=== PATIENT | male | born 1945 | race Caucasian/White ===

== ENCOUNTER 2020-02-28 19:20 | Inpatient (IN) | payer MEDICARE, OTHER ==
[~2020-02-28] VITALS: Ht 172.7 cm; Wt 67.6 kg
[2020-02-28 19:33] VITALS: BP 136/68
[2020-02-28] MEDS ORDERED: METHYL SALICYLATE/MENTHOL TOPICAL OINTMENT 57GM TUBE. TP PRN (19:45)
[2020-02-28] MEDS ORDERED: MAGNESIUM HYDROXIDE 2,400 MG/30 ML ORAL.SUSP. PO PRN (19:45)
[2020-02-28] MEDS ORDERED: MAG HYDROX/AL HYDROX/SIMETH 30 ML ORAL.SUSP PO PRN (19:45)
[2020-02-28] MEDS ORDERED: MV-M1TAB7 PO (19:56)
[2020-02-28] MEDS ORDERED: ATOR20TA58 PO (19:56)
[2020-02-28] MEDS ORDERED: Folic Acid PO (19:56)
[2020-02-28] MEDS ORDERED: ESCITALOPRAM OX10 MG PO (19:56)
[2020-02-28] MEDS ORDERED: MEDR150D9 IM (19:56)
[2020-02-28] MEDS ORDERED: HYDR-2155 PO ×2 (19:56)
[2020-02-28] MEDS ORDERED: DIVA500T4 PO (19:56)
[2020-02-28] MEDS ORDERED: FENO145T3 PO (19:56)
[2020-02-28] MEDS ORDERED: MEMA5TAB PO (19:56)
[2020-02-28] MEDS ORDERED: ACET500T68 PO (19:56)
[2020-02-28] MEDS ORDERED: MULT-245 PO (19:56)
[2020-02-28] MEDS ORDERED: HALO5AMP2 IM (19:56)
[2020-02-28] MEDS ORDERED: ASPI-630 PO (19:56)
[2020-02-28] MEDS ORDERED: TEMA7.5C PO (19:57)
[2020-02-28] MEDS ORDERED: MEDR10TA PO (19:57)
[2020-02-28] MEDS ORDERED: RIVA1PAT23 TD (19:57)
[2020-02-28] MEDS ORDERED: RIVA10TA PO (19:57)
[2020-02-28] MEDS ORDERED: POLY2500 PO (19:57)
[2020-02-28] MEDS ORDERED: QUET25TA5 PO ×2 (19:57)
[2020-02-28] MEDS ORDERED: PANT40TA6 PO (19:57)
[2020-02-28] MEDS ORDERED: SENN-37 PO (19:57)
[2020-02-28] MEDS ORDERED: DIVALPROEX ER 500 MG TAB.ER.24H PO SCH (21:00)
[2020-02-28] MEDS: ACETAMINOPHEN 500 MG TABLET PO SCH (21:00)
[2020-02-28] MEDS: QUEtiapine 25 MG TABLET. PO SCH (21:00)
[2020-02-28] MEDS: TEMAZEPAM 7.5 MG CAPSULE PO SCH (21:00)
[2020-02-28] MEDS: ATORVASTATIN CALCIUM 20 MG TABLET PO SCH (21:00)
[2020-02-28] MEDS: MEMANTINE 5 MG TABLET. PO SCH (21:00)
[2020-02-28] MEDS: SENNOSIDES/DOCUSATE 8.6/50MG TABLET. PO SCH (21:00)
--- NOTE | 2020-02-28 21:38 | NUR ---
Admission Note with Justification for Admission to [facility] Patient admitted to [facility] for protective oversight for emergency stabilization of acute psychiatric crisis. Pt admitted from: [facility] Mode of arrival: EMS Accompanied By: EMS Precipitating behaviors that initiated intake and admission: resistive to cares, combative with staff, increased aggression, hitting, spitting, throwing food, calling staff names, restless, tried to push computer over. Description of failure of out patient attempts at stabilization in previous setting list behavior and medication trials: [facility] 01/2020; medication changes and re-direction unsuccessful. Behaviors and assessment findings upon admission: Pt agitated, resistive with cares and assessment, verbally aggressive towards staff, using vulgar language. Attempted to administer HS medications, however pt spit pills at staff. Pt has been restless and uncooperative since arrival. Pt c/o L hip pain but refused his medication. Plan: Admit for protective oversight for adjustment and stabilization of medications, behaviors and mood. Intense treatment regimen including groups, medication adjustments, therapy, consistent regimen for ADL's, self care, and sleep hygiene. Daily monitoring by Inpatient staff, Psychiatry, and Medical Physician.
--- NOTE | 2020-02-28 22:02 | PDOC ---
Exam Note: Nikita Note: Please also refer to the separate dictated note~for this date of service dictated separately.~Patient seen individually. Discussed the patient with Nursing staff reviewed the chart.~Reviewed interim history and current functioning. Reviewed vital signs,~Labs/ Radiology~and current medications noted below. Continue current treatment with the changes noted in the dictated addendum note Assessment: Vital Signs/I&O: Vital Signs Date Time Temp Pulse Resp B/P (MAP) Pulse Ox O2 Delivery O2 Flow Rate FiO2 02/28/20 19:33 98.9 91 18 136/68 (90) 97 Current Medications: I have reviewed the current psychotropics carefully including drug interactions. Risk benefit ratio favors no change other than as noted in my dictated progress note. RHONDA PALUMBO MD Feb 28, 2020 22:02
[2020-02-29 06:29] LABS: CLARITY,URINE HAZY; COLOR,URINE YELLOW
[2020-02-29 06:31] LABS: BACTERIA,URINE 0 /HPF (0-FEW); BILIRUBIN,URINE NEG (NEG); GLUCOSE,URINE NEG (NEG); NITRITE,URINE NEG (NEG); RBC,URINE OCC /HPF (0-2); SQUAMOUS EPITHELIAL CELL,UR FEW /LPF; UROBILINOGEN,URINE 0.2 mg/dL (0.2 mg/dL); WBC,URINE OCC /HPF (0-4)
[2020-02-29 06:37] VITALS: BP 148/74
[2020-02-29 07:59] LABS: BASO % 0 % (0-3); EOS # 0.1 x10^3/uL (0.0-0.7); EOS % 2 % (0-3); HEMATOCRIT 29.2 % (39.0-53.0); HEMOGLOBIN 9.5 g/dL (13.0-17.5); LYMPH # 1.7 x10^3/uL (1.0-4.8); LYMPH % 30 % (24-48); MEAN CORPUSCULAR HEMOGLOBIN 30 pg (25-35); MEAN CORPUSCULAR HGB CONC 33 g/dL (31-37); MEAN CORPUSCULAR VOLUME 91 fL (79-100); MONO # 0.6 x10^3/uL (0.0-1.1); MONO % 11 % (0-9); NEUT # 3.1 x10^3uL (1.8-7.7); NEUT % 57 % (31-73); PLATELET COUNT 240 x10^3/uL (140-400); RED BLOOD COUNT 3.21 x10^6/uL (4.30-5.70); RED CELL DISTRIBUTION WIDTH 14.8 % (11.5-14.5); WHITE BLOOD COUNT 5.5 x10^3/uL (4.0-11.0)
[2020-02-29 08:17] LABS: ALBUMIN 2.7 g/dL (3.4-5.0); ALBUMIN/GLOBULIN RATIO 0.8 (1.0-1.7); ALK PHOS 70 U/L (46-116); ALT (SGPT) 18 U/L (16-63); ANION GAP 9 (6-14); AST (SGOT) 21 U/L (15-37); BLOOD UREA NITROGEN 15 mg/dL (8-26); BUN/CREATININE RATIO 9 (6-20); CALCIUM 8.4 mg/dL (8.5-10.1); CARBON DIOXIDE 24 mmol/L (21-32); CHLORIDE 109 mmol/L (98-107); CREATININE 1.6 mg/dL (0.7-1.3); GFR 42.1; GLUCOSE 90 mg/dL (70-99); SODIUM 142 mmol/L (136-145); TOTAL BILIRUBIN 0.4 mg/dL (0.2-1.0); TOTAL PROTEIN 6.1 g/dL (6.4-8.2)
[2020-02-29 08:40] LABS: VAL ACID 28 mcg/mL (50-100)
[2020-02-29] MEDS: medroxyPROGESTERone 5 MG TABLET PO SCH (08:41)
[2020-02-29] MEDS: CHOLECALCIFEROL (VITAMIN D3) 1,000 UNIT TABLET PO SCH (08:41)
[2020-02-29] MEDS: QUEtiapine 25 MG TABLET. PO SCH ×4 (08:41→19:55)
[2020-02-29] MEDS: FOLIC ACID 1 MG TABLET PO SCH (08:41)
[2020-02-29] MEDS: MEMANTINE 5 MG TABLET. PO SCH ×2 (08:41→19:56)
[2020-02-29] MEDS: ACETAMINOPHEN 500 MG TABLET PO SCH ×3 (08:41→19:55)
[2020-02-29] MEDS: SENNOSIDES/DOCUSATE 8.6/50MG TABLET. PO SCH ×2 (08:41→19:55)
[2020-02-29] MEDS: RIVASTIGMINE 9.5MG PATCH. TD SCH (08:42)
[2020-02-29] MEDS: POLYETHYLENE GLYCOL 3350 17 GM PACKET. PO SCH (08:42)
[2020-02-29] MEDS: HYDROcodone/APAP 5/325MG 1 TAB TABLET PO SCH (08:42)
[2020-02-29] MEDS: RIVAROXABAN 10 MG TABLET. PO SCH (08:42)
[2020-02-29] MEDS: FENOFIBRATE NANOCRYSTALLIZED 145 MG TABLET PO SCH (08:42)
[2020-02-29] MEDS: MULTIVITAMIN with MINERAL TABLET. PO SCH (08:42)
[2020-02-29] MEDS: PANTOPRAZOLE 40 MG TABLET. PO SCH (08:42)
[2020-02-29] MEDS: ASPIRIN CHEWABLE 81 MG TABLET. PO SCH (08:42)
[2020-02-29] MEDS: CITALOPRAM 20 MG TABLET. PO SCH (08:42)
[2020-02-29] MEDS: VALPROATE ACID 250 MG/5 ML ORAL SOLUTION PO SCH ×3 (08:43→20:07)
[2020-02-29] MEDS: NYSTATIN TOPICAL POWDER 15GM BOTTLE. TP SCH ×2 (08:43→19:55)
--- NOTE | 2020-02-29 14:06 | NUR ---
Pt is irritable, confused, disorganized,and yelling out in the morning but calm and napping in the afternoon. He was compliant with his medication and assessment.
[2020-02-29 16:19] VITALS: BP 138/64
[2020-02-29 18:07] LABS: THYROXINE 6.4 ug/dL (4.5-12.0)
[2020-02-29] MEDS: TEMAZEPAM 7.5 MG CAPSULE PO SCH (19:55)
[2020-02-29] MEDS: ATORVASTATIN CALCIUM 20 MG TABLET PO SCH (19:55)
[2020-02-29 20:06] LABS: THYROID STIM HORMONE (TSH) 2.344 uIU/mL (0.358-3.740)
--- NOTE | 2020-02-29 21:33 | CONS ---
DATE OF CONSULTATION: 02/29/2020 REASON FOR CONSULTATION: Medical management. HISTORY OF PRESENT ILLNESS: The patient is a 75-year-old male patient, a resident at [facility] in [place], who was admitted on account of being resistive to cares, combative with staff, increased aggressiveness, hitting, spitting, throwing food, calling staff names, restless, tried to push the computer over, all this in a background of major neurocognitive disorder, vascular Alzheimer with delusion, depression, behavioral disturbances; anxiety disorder, unspecified; impulse control disorder. PAST MEDICAL HISTORY: Significant for hyperlipidemia, chronic kidney disease, gastroesophageal reflux disease, hypertension, has a history of alcohol abuse and vitamin D deficiency, together with muscle wasting and difficulty walking. PAST PSYCHIATRIC HISTORY: Significant for schizoaffective disorder with mild cognitive impairment. PAST SURGICAL HISTORY: Significant for left hip fracture, status post left total hip arthroplasty. ALLERGIES: He has no known drug allergies. MEDICATIONS: He is currently on following medications: He is on valproic acid 250 mg twice a day, folic acid 1 mg once a day, nystatin powder twice a day, medroxyprogesterone acetate 150 mg intramuscular every 2 weeks, polyethylene glycol 17 grams daily, vitamin D 1000 International Units once a day, multivitamin with calcium 1 tablet once a day, rivaroxaban 10 mg once a day, Protonix 40 mg once a day, hydrocodone/APAP 5/325 1 tablet daily, fenofibrate 145 mg once a day, aspirin 81 mg once a day, medroxyprogesterone 10 mg p.o. daily, citalopram hydrobromide 20 mg daily, rivastigmine for Exelon 1 patch daily, quetiapine fumarate 25 mg 3 times a day, olanzapine 2.5 mg every 2 hours, senna-S 2 tablets twice a day, atorvastatin 20 mg at bedtime, acetaminophen 1000 mg 3 times a day, temazepam 7.5 mg at bedtime for insomnia, Seroquel 25 mg at bedtime, Namenda 5 mg twice a day, milk of magnesia 30 mL p.o. daily p.r.n. for constipation, and Mylanta 15 mL after meals and as needed. REVIEW OF SYSTEMS: Unobtainable. PHYSICAL EXAMINATION: GENERAL: On examining him, he was resting slightly propped up in bed, in no apparent respiratory distress. He was pale, not jaundiced, cyanosed or thyromegaly. No jugular venous distention. No limb edema. VITAL SIGNS: His heart rate was 78, blood pressure was 138/64, temperature was 98.2, respiratory rate was 18, and oxygen saturation was 100% on room air. HEAD, EYES, EARS, NOSE AND THROAT: Showed normocephalic, atraumatic. NECK: Supple. HEART: Showed normal first and second heart sounds. No gallop or murmur. CHEST: Clear to auscultation. No crepitation or rhonchi. ABDOMEN: Distended, soft, nontender. NEUROLOGIC: He is demented, but without any obvious lateralizing sign. All his cranial nerves are intact. EXTREMITIES: He moves extremities without difficulty. He does ambulate with a walker with standby assist. LABORATORY DATA: Showed a white cell count 5500, hemoglobin 9.5, hematocrit 29, MCV 91, and platelet count 240,000. His chemistry showed a serum sodium 142, potassium 4, chloride 109, bicarbonate 24, anion gap of 9, BUN 15, creatinine 1.6, estimated GFR was 42 mL per minute. His glucose was 90, calcium was 8.4, magnesium 2. Total bilirubin, AST, ALT, alkaline phosphatase were normal. Total protein 6.1, albumin was 2.7. His urinalysis was essentially unremarkable and his toxic screen showed that his valproic acid was only 28 mcg/mL, which is below the lower limit of therapeutic range. IMPRESSION: In summary, this is a 75-year-old male patient, a resident at [facility], who was admitted on account of being resistive to cares, combative with staff, increased aggression, hitting, spitting, throwing food, calling staff names, restless, try to push the computer over, all this in a background of major neurocognitive disorder, vascular, Alzheimer with delusion, depression with behavioral disturbances; anxiety disorder, unspecified and impulse control disorder. Medically, the patient is known to have hypertension, hyperlipidemia, gastroesophageal reflux disease as well as chronic kidney disease and normochromic normocytic anemia. So, from medical point of view, the patient seems to be stable. I will obviously follow all the lab works that are still pending at the time of this dictation and make any necessary adjustment. Meanwhile, we will continue with all his current medications. Thank you, Dr. Clemente for allowing me to participate in the care of this patient. CATALINO OWEN MD DR: REILLY/mildred JOB#: [id number] / [id number]
--- NOTE | 2020-02-29 21:52 | PDOC ---
Exam Note: Nikita Note: Please also refer to the separate dictated note~for this date of service dictated separately.~Patient seen individually. Discussed the patient with Nursing staff reviewed the chart.~Reviewed interim history and current functioning. Reviewed vital signs,~Labs/ Radiology~and current medications noted below. Continue current treatment with the changes noted in the dictated addendum note Assessment: Vital Signs/I&O: Vital Signs Date Time Temp Pulse Resp B/P (MAP) Pulse Ox O2 Delivery O2 Flow Rate FiO2 02/29/20 21:43 97.2 100 02/29/20 16:19 78 18 138/64 (88) 02/29/20 08:42 Room Air Labs: Laboratory Tests Test 02/29/20 05:52 02/29/20 07:33 Urine Collection Type U cath Urine Color Yellow Urine Clarity Hazy Urine pH 5.5 Urine Specific Killen <=1.005 Urine Protein Neg (NEG-TRACE) Urine Glucose (UA) Neg mg/dL (NEG) Urine Ketones (Stick) Neg mg/dL (NEG) Urine Blood Neg (NEG) Urine Nitrite Neg (NEG) Urine Bilirubin Neg (NEG) Urine Urobilinogen Dipstick 0.2 mg/dL (0.2 mg/dL) Urine Leukocyte Esterase Neg (NEG) Urine RBC Occ /HPF (0-2) Urine WBC Occ /HPF (0-4) Urine Squamous Epithelial Cells Few /LPF Urine Renal Epithelial Cells Few /LPF Urine Bacteria 0 /HPF (0-FEW) White Blood Count 5.5 x10^3/uL (4.0-11.0) Red Blood Count 3.21 x10^6/uL (4.30-5.70) L Hemoglobin 9.5 g/dL (13.0-17.5) L Hematocrit 29.2 % (39.0-53.0) L Mean Corpuscular Volume 91 fL (79-100) Mean Corpuscular Hemoglobin 30 pg (25-35) Mean Corpuscular Hemoglobin Concent 33 g/dL (31-37) Red Cell Distribution Width 14.8 % (11.5-14.5) H Platelet Count 240 x10^3/uL (140-400) Neutrophils (%) (Auto) 57 % (31-73) Lymphocytes (%) (Auto) 30 % (24-48) Monocytes (%) (Auto) 11 % (0-9) H Eosinophils (%) (Auto) 2 % (0-3) Basophils (%) (Auto) 0 % (0-3) Neutrophils # (Auto) 3.1 x10^3uL (1.8-7.7) Lymphocytes # (Auto) 1.7 x10^3/uL (1.0-4.8) Monocytes # (Auto) 0.6 x10^3/uL (0.0-1.1) Eosinophils # (Auto) 0.1 x10^3/uL (0.0-0.7) Basophils # (Auto) 0.0 x10^3/uL (0.0-0.2) Sodium Level 142 mmol/L (136-145) Potassium Level 4.0 mmol/L (3.5-5.1) Chloride Level 109 mmol/L (98-107) H Carbon Dioxide Level 24 mmol/L (21-32) Anion Gap 9 (6-14) Blood Urea Nitrogen 15 mg/dL (8-26) Creatinine 1.6 mg/dL (0.7-1.3) H Estimated GFR (Cockcroft-Gault) 42.1 BUN/Creatinine Ratio 9 (6-20) Glucose Level 90 mg/dL (70-99) Calcium Level 8.4 mg/dL (8.5-10.1) L Magnesium Level 2.0 mg/dL (1.8-2.4) Iron Level 20 ug/dL (65-175) L Total Iron Binding Capacity 184 ug/dL (250-450) L Iron Saturation 11 % (15-34) L Total Bilirubin 0.4 mg/dL (0.2-1.0) Aspartate Amino Transferase (AST) 21 U/L (15-37) Alanine Aminotransferase (ALT) 18 U/L (16-63) Alkaline Phosphatase 70 U/L (46-116) Total Protein 6.1 g/dL (6.4-8.2) L Albumin 2.7 g/dL (3.4-5.0) L Albumin/Globulin Ratio 0.8 (1.0-1.7) L Triglycerides Level 108 mg/dL (0-150) Cholesterol Level 117 mg/dL (0-200) LDL Cholesterol, Calculated 60 mg/dL (0-100) VLDL Cholesterol, Calculated 21 mg/dL (0-40) Non-HDL Cholesterol Calculated 81 mg/dL (0-129) HDL Cholesterol 36 mg/dL (40-60) L Cholesterol/HDL Ratio 3.0 Vitamin B12 Level 563 pg/mL (247-911) 25-Hydroxy Vitamin D Total 13.6 ng/mL (30-100) L Thyroid Stimulating Hormone (TSH) 2.344 uIU/mL (0.358-3.740) Thyroxine (T4) 6.4 ug/dL (4.5-12.0) Total Triiodothyronine (TT3) 83 ng/dL (71-180) Valproic Acid Level 28 mcg/mL (50-100) L Valproic Acid Last Dose Date 02/28/20 Valproic Acid Last Dose Time 0900 Treponema pallidum Antibody Nonreactive (Nonreactive) Current Medications: Meds: Current Medications Medications (Trade) Dose Ordered Sig/Julio Route PRN Reason Start Time Stop Time Status Last Admin Dose Admin Quetiapine Fumarate (SEROquel) 25 mg TIDWMEALS PO 02/29/20 08:00 02/29/20 14:19 Rivastigmine (Exelon) 1 patch DAILY TD 02/29/20 09:00 02/29/20 08:42 Citalopram Hydrobromide (CeleXA) 20 mg DAILY PO 02/29/20 09:00 02/29/20 08:42 Medroxyprogesterone Acetate (Provera) 10 mg DAILY PO 02/29/20 09:00 02/29/20 08:41 Aspirin (Aspirin Chewable) 81 mg DAILY PO 02/29/20 09:00 02/29/20 08:42 Fenofibrate (Tricor) 145 mg DAILY PO 02/29/20 09:00 02/29/20 08:42 Acetaminophen/ Hydrocodone Bitart (Lortab 5/325) 1 tab DAILY PO 02/29/20 09:00 02/29/20 08:42 Pantoprazole Sodium (Protonix) 40 mg DAILY PO 02/29/20 09:00 02/29/20 08:42 Rivaroxaban (Xarelto) 10 mg DAILY PO 02/29/20 09:00 02/29/20 08:42 Multivitamins/ Calcium (Thera-M Plus) 1 tab DAILY PO 02/29/20 09:00 02/29/20 08:42 Vitamin D (Vitamin D3) 1,000 unit DAILY PO 02/29/20 09:00 02/29/20 08:41 Polyethylene Glycol (miraLAX) 17 gm DAILY PO 02/29/20 09:00 02/29/20 08:42 Folic Acid (Folic Acid) 1 mg DAILY PO 02/29/20 09:00 02/29/20 08:41 Valproic Acid (Depakene) 250 mg BID PO 02/29/20 09:00 02/29/20 19:58 DC 02/29/20 08:43 Nystatin (Nystop) 1 addison BID TP 02/29/20 09:00 02/29/20 19:55 Valproic Acid (Depakene) 500 mg BID PO 02/29/20 21:00 02/29/20 20:07 I have reviewed the current psychotropics carefully including drug interactions. Risk benefit ratio favors no change other than as noted in my dictated progress note. Diagnosis: Problems: (1) Mild cognitive impairment RHONDA PALUMBO MD Feb 29, 2020 21:52
--- NOTE | 2020-02-29 23:17 | NUR ---
Nursing Note: Location of Patient during Assessment: Pt withdrawn to room, lying in bed with eyes closed. Behaviors Mood and Affect this shift: Pt slightly irritable when awakened but was calmer after I explained why I woke him. Medication Compliant: Pt compliant with medications crushed and hidden in pudding. Depakene hidden in grape juice which pt consumed. Assessment Compliant: Pt cooperative with assessment but would not answer orientation questions. Response After Interventions: Pt lying in bed with eyes closed.
[2020-03-01 02:07] LABS: HEMOGLOBIN A1C 5.1 % (4.8-5.6)
[2020-03-01 07:09] VITALS: BP 169/83
--- NOTE | 2020-03-01 09:25 | NUR ---
CATHY received a call from pt brother Efrain, who wanted to see if he could get an update on his brother. CATHY explained that CATHY was out yesterday and was on the way to treatment team. CATHY enquired if Efrain would be available within the next hour and CATHY could call him to participate in team and both parties could get an update on how pt is doing. Efrain agreed and was thankful for the opportunity to be called.
[2020-03-01] MEDS: POLYETHYLENE GLYCOL 3350 17 GM PACKET. PO SCH (09:33)
[2020-03-01] MEDS: RIVASTIGMINE 9.5MG PATCH. TD SCH (09:34)
[2020-03-01] MEDS: RIVAROXABAN 10 MG TABLET. PO SCH (09:35)
[2020-03-01] MEDS: VALPROATE ACID 250 MG/5 ML ORAL SOLUTION PO SCH ×2 (09:35→21:05)
[2020-03-01] MEDS: MEMANTINE 5 MG TABLET. PO SCH ×2 (09:35→21:06)
[2020-03-01] MEDS: QUEtiapine 25 MG TABLET. PO SCH ×4 (09:35→21:06)
[2020-03-01] MEDS: NYSTATIN TOPICAL POWDER 15GM BOTTLE. TP SCH ×2 (09:35→21:06)
[2020-03-01] MEDS: MULTIVITAMIN with MINERAL TABLET. PO SCH (09:35)
[2020-03-01] MEDS: HYDROcodone/APAP 5/325MG 1 TAB TABLET PO SCH (09:36)
[2020-03-01] MEDS: medroxyPROGESTERone 5 MG TABLET PO SCH (09:36)
[2020-03-01] MEDS: ASPIRIN CHEWABLE 81 MG TABLET. PO SCH (09:36)
[2020-03-01] MEDS: FOLIC ACID 1 MG TABLET PO SCH (09:36)
[2020-03-01] MEDS: CITALOPRAM 20 MG TABLET. PO SCH (09:36)
[2020-03-01] MEDS: FENOFIBRATE NANOCRYSTALLIZED 145 MG TABLET PO SCH (09:36)
[2020-03-01] MEDS: SENNOSIDES/DOCUSATE 8.6/50MG TABLET. PO SCH ×2 (09:36→21:06)
[2020-03-01] MEDS: CHOLECALCIFEROL (VITAMIN D3) 1,000 UNIT TABLET PO SCH (09:36)
[2020-03-01] MEDS: ACETAMINOPHEN 500 MG TABLET PO SCH ×2 (09:37→13:22)
[2020-03-01] MEDS: PANTOPRAZOLE 40 MG TABLET. PO SCH (09:37)
--- NOTE | 2020-03-01 09:38 | NUR ---
patient is on Tylenol 1000mg and hydrocodone/apap 5/325. Held Tylenol and will consult with dr peterson about total amount of Tylenol to be given.
--- NOTE | 2020-03-01 12:51 | NUR ---
Patient has been in bed most of this shift. He was asleep when approached for medications, woke up, and took them crushed in vanilla pudding, he took his depakene in grape juice. He thanked nurse for pudding and went back to sleep. Patient has not exhibited any adverse behaviors, he has spent his day laying in bed sleeping. [employer]UMENT REPAIRER stated that patient was having trouble swallowing his pureed diet at lunch. Will continue to monitor.
--- NOTE | 2020-03-01 13:41 | HP ---
ADMIT DATE: 02/28/2020 PSYCHIATRIC ADMISSION HISTORY AND EVALUATION This late entry, date of service 02/28/2020 covers elements not covered in my initial note. IDENTIFYING DATA: The patient is a 75-year-old male referred to us by Dr. Jimenez his primary care physician at [facility] on account of worsening confusion, being resistive to care, combative with staff. The patient had increased aggression, hitting, spitting at nursing staff, throwing food. He was calling derogatory names to different staff members. He was restless. He tried to push a computer over. The patient's behaviors were deemed dangerous, unmanageable at the facility, referred for inpatient psychiatric stabilization. 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 CHIEF COMPLAINT: "No." The patient is not very verbally interactive, extremely confused. HISTORY OF PRESENT ILLNESS: The patient has a history of dementia, multifactorial, possibly consequent to alcohol, Alzheimer, vascular. He has been residing at the [facility] for some time, recently getting more agitated, aggressive, disruptive. He has had sleep and appetite changes, appeared paranoid with intermittent hallucinations, aggression as noted. No active suicidal or homicidal ideation. He does have a history of mood swings and prior diagnosis of schizoaffective disorder, but veracity of this is unclear. PAST PSYCHIATRIC HISTORY: As above. MEDICAL HISTORY: Positive for hyperlipidemia, history of recent hip fracture, muscle wasting, difficulty walking, repeated falls, left artificial hip, vitamin deficiency, hyperlipidemia, hypertension, GERD, dysphagia, chronic kidney disease, he is an ex-smoker. ACCU-CHEKS: None. CODE STATUS: Full code. ALLERGIES: Negative. DIET: Pureed, takes meds crushed in pudding, ambulates with walker. CURRENT PSYCHOTROPICS: Depakene 500 mg b.i.d., Restoril 7.5 mg at bedtime, Celexa 20 mg a day, medroxyprogesterone 150 mg IM q. 2 weeks and Provera 10 mg daily, Namenda 5 mg b.i.d., Exelon patch 9.5 mg a day, Seroquel 12.5 mg 3 times a day, 25 mg at bedtime. FAMILY HISTORY: Noncontributory. SOCIAL HISTORY: Positive for alcohol abuse. No physical, sexual or elder abuse history is noted. Not known to be a perpetrator. REACTION TO HOSPITALIZATION: The patient oblivious of this. ASSETS: Supportive family and living at the retirement. REVIEW OF SYSTEMS: No CV, , pulmonary, eye system symptoms on review. MENTAL STATUS EXAMINATION: The patient is oriented to himself. Insight, judgment, recent and remote memory, attention, concentration, fund of knowledge poor, consistent with his diagnosis. Discussed the patient with Dr. Jimenez who suggested stopping the oral Provera since he is on the IM medroxyprogesterone. He has had some sexually inappropriate behaviors in the past, necessitating this hormone treatment. IMPRESSION: Major neurocognitive disorder, multifactorial secondary to alcohol, vascular, possibly Alzheimer's with delusion, depression, behavioral disturbance; anxiety disorder, unspecified; impulse control disorder, unspecified. Rest as above. PLAN: Admit to Geropsychiatry Unit at [facility]. I will see the patient daily individually from a psychiatric standpoint. Medical followup per Dr. Jimenez/Dr. Marcial. Continue the patient on his current psychotropics. Consider changing Restoril to Remeron. Check a valproic acid level. Make further adjustments as clinically indicated. Estimated length of stay 10-12 days. MAN Rene PALUMBO MD DR: SENTHIL/mildred JOB#: [id number] / [id number]
[2020-03-01 16:33] VITALS: BP 131/69
[2020-03-01] MEDS: CHOLECALCIFEROL (VITAMIN D3) 50,000 UNIT CAPSULE PO SCH (17:42)
--- NOTE | 2020-03-01 17:56 | NUR ---
CATHY attempted to contact Efrain to go over questions for pt PSA. Efrain asked to complete this in the morning as it would be a better time for him. CATHY will plan to contact Efrain in the morning to have the PSA completed.
[2020-03-01] MEDS: ATORVASTATIN CALCIUM 20 MG TABLET PO SCH (21:06)
[2020-03-01] MEDS: MIRTAZAPINE 7.5 MG TABLET. PO SCH (21:07)
--- NOTE | 2020-03-01 22:01 | PDOC ---
Exam Note: Nikita Note: Please also refer to the separate dictated note~for this date of service dictated separately.~Patient seen individually. Discussed the patient with Nursing staff reviewed the chart.~Reviewed interim history and current functioning. Reviewed vital signs,~Labs/ Radiology~and current medications noted below. Continue current treatment with the changes noted in the dictated addendum note Assessment: Vital Signs/I&O: Vital Signs Date Time Temp Pulse Resp B/P (MAP) Pulse Ox O2 Delivery O2 Flow Rate FiO2 03/01/20 16:33 97.8 65 18 131/69 (89) 98 03/01/20 10:42 Room Air I & O 02/29/20 02/29/20 03/01/20 15:00 23:00 07:00 Intake Total 320 ml 320 ml Balance 320 ml 320 ml Current Medications: Meds: Current Medications Medications (Trade) Dose Ordered Sig/Julio Route PRN Reason Start Time Stop Time Status Last Admin Dose Admin Mirtazapine (Remeron) 7.5 mg QHS PO 03/01/20 21:00 03/01/20 21:07 Vitamin D (Vitamin D3) 50,000 unit WEEKLY PO 03/01/20 16:30 03/01/20 17:42 I have reviewed the current psychotropics carefully including drug interactions. Risk benefit ratio favors no change other than as noted in my dictated progress note. Diagnosis: Problems: (1) Major neurocognitive disorder (2) Dementia in Alzheimer's disease with depression (3) Dementia in Alzheimer's disease with delusions (4) Dementia in Alzheimer's disease with early onset with behavioral disturbance (5) Dementia associated with alcoholism (6) Impulse control disorder, unspecified (7) Anxiety disorder, unspecified RHONDA PALUMBO MD Mar 01, 2020 22:01
--- NOTE | 2020-03-02 03:50 | NUR ---
Nursing Note The patient was disorganized and irritable this shift. The patient repeatedly attempted to exit his bed without assistance. The patient took his medication crushed in pudding. The patient received PRN Zyprexa per PRN order@2225 for agitation. The patient is currently sleeping in his room.
[2020-03-02 06:27] VITALS: BP 165/73
--- NOTE | 2020-03-02 06:59 | PDOC ---
Exam Note: Nikita Note: This note is a late entry for 02/29/2020 covers elements not covered in my initial note. Subjective: The patient was evaluated face to face in the evening of 02/29/2020 with [facility]. The patient slept 8 hours previous night. Previous night he was agitated, spitting out his medications, drowsy in the evening, somewhat sedated, confused, name calling others in the morning. Review of Systems: No CV, , pulmonary, eye, ENT system symptoms on review. Reliability poor. Mental Status Exam: Oriented to himself. Insight and judgment, recent and remote memory, attention and concentration, fund of knowledge is poor consistent with his diagnoses. Laboratory Data: Reviewed. Impression: Major neurocognitive disorder multifactorial secondary to alcohol, vascular possibly Alzheimers with delusion, depression, behavioral disturbance. Impulse control disorder unspecified. Anxiety disorder unspecified. Rest unchanged. Plan: Continue psychotropics from initial note. Stop Provera 10 mg a day. Maintain Depo-Provera 150 mg IM q.2 weeks along with Depakene, Celexa, Namenda, Exelon patch and Seroquel, Restoril as before. Assessment: Vital Signs/I&O: Vital Signs Date Time Temp Pulse Resp B/P (MAP) Pulse Ox O2 Delivery O2 Flow Rate FiO2 03/02/20 06:27 98.0 78 16 165/73 (103) 96 03/01/20 10:42 Room Air I & O 03/01/20 03/01/20 03/02/20 14:59 22:59 06:59 Intake Total 600 ml 240 ml Balance 600 ml 240 ml Current Medications: Meds: Current Medications Medications (Trade) Dose Ordered Sig/Julio Route PRN Reason Start Time Stop Time Status Last Admin Dose Admin Mirtazapine (Remeron) 7.5 mg QHS PO 03/01/20 21:00 03/01/20 21:07 Vitamin D (Vitamin D3) 50,000 unit WEEKLY PO 03/01/20 16:30 03/01/20 17:42 I have reviewed the current psychotropics carefully including drug interactions. Risk benefit ratio favors no change other than as noted in my dictated progress note. Diagnosis: Problems: (1) Dementia associated with alcoholism (2) Impulse control disorder, unspecified (3) Anxiety disorder, unspecified (4) Dementia in Alzheimer's disease with depression (5) Dementia in Alzheimer's disease with delusions (6) Major neurocognitive disorder (7) Dementia in Alzheimer's disease with early onset with behavioral disturbance RHONDA PALUMBO MD Mar 02, 2020 06:59
--- NOTE | 2020-03-02 07:27 | PDOC ---
Exam Note: Nikita Note: This note is a late entry for 03/01/2020 covers elements not covered in my initial note. Subjective: The patient was evaluated face to face in the morning of 03/01/2020 for treatment team meeting with Huy (social service staff), Itzel, activity therapy, and Maryan MC along with patients brother Efrain attended the meeting. The patient slept 9-3/4 hours previous night. Efrain is the DPOA requested DNR status for the patient. 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 He was drowsy, irritable in the morning, later little cooperative. Previous night he was irritable as well. There is a significant family history of alcohol abuse. I had a lengthy discussion with Efrain and obtained fairly detailed psychosocial history at the treatment team meeting. Review of Systems: No CV, , pulmonary, eye system symptoms on review. He is somewhat hard of hearing. Mental Status Exam: He is oriented to himself. Insight and judgment, recent and remote memory, attention and concentration, fund of knowledge is poor consistent with his diagnoses. Laboratory Data: Reviewed. 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 Impulse control disorder unspecified. Anxiety disorder unspecified. Rest unchanged. Plan: We will go ahead and stop the Provera 10 mg daily. Change Restoril to Remeron 7.5 mg p.o. h.s. Continue Depakene, Celexa, medroxyprogesterone IM, Namenda, Exelon patch, Seroquel at current dosage. Adjust further as clinically indicated. Assessment: Vital Signs/I&O: Vital Signs Date Time Temp Pulse Resp B/P (MAP) Pulse Ox O2 Delivery O2 Flow Rate FiO2 03/02/20 06:27 98.0 78 16 165/73 (103) 96 03/01/20 10:42 Room Air I & O 03/01/20 03/01/20 03/02/20 15:00 23:00 07:00 Intake Total 600 ml 240 ml Balance 600 ml 240 ml Current Medications: Meds: Current Medications Medications (Trade) Dose Ordered Sig/Julio Route PRN Reason Start Time Stop Time Status Last Admin Dose Admin Mirtazapine (Remeron) 7.5 mg QHS PO 03/01/20 21:00 03/01/20 21:07 Vitamin D (Vitamin D3) 50,000 unit WEEKLY PO 03/01/20 16:30 03/01/20 17:42 I have reviewed the current psychotropics carefully including drug interactions. Risk benefit ratio favors no change other than as noted in my dictated progress note. Diagnosis: Problems: (1) Dementia associated with alcoholism (2) Impulse control disorder, unspecified (3) Anxiety disorder, unspecified (4) Dementia in Alzheimer's disease with depression (5) Dementia in Alzheimer's disease with delusions (6) Major neurocognitive disorder (7) Dementia in Alzheimer's disease with early onset with behavioral disturbance RHONDA PALUMBO MD Mar 02, 2020 07:27
[2020-03-02] MEDS: POLYETHYLENE GLYCOL 3350 17 GM PACKET. PO SCH (08:34)
[2020-03-02] MEDS: RIVAROXABAN 10 MG TABLET. PO SCH (08:35)
[2020-03-02] MEDS: medroxyPROGESTERone 5 MG TABLET PO SCH (08:35)
[2020-03-02] MEDS: CITALOPRAM 20 MG TABLET. PO SCH (08:35)
[2020-03-02] MEDS: SENNOSIDES/DOCUSATE 8.6/50MG TABLET. PO SCH ×2 (08:35→20:01)
[2020-03-02] MEDS: FENOFIBRATE NANOCRYSTALLIZED 145 MG TABLET PO SCH (08:35)
[2020-03-02] MEDS: ASPIRIN CHEWABLE 81 MG TABLET. PO SCH (08:35)
[2020-03-02] MEDS: MEMANTINE 5 MG TABLET. PO SCH ×2 (08:35→20:02)
[2020-03-02] MEDS: QUEtiapine 25 MG TABLET. PO SCH ×4 (08:35→20:02)
[2020-03-02] MEDS: FOLIC ACID 1 MG TABLET PO SCH (08:36)
[2020-03-02] MEDS: PANTOPRAZOLE 40 MG TABLET. PO SCH (08:36)
[2020-03-02] MEDS: NYSTATIN TOPICAL POWDER 15GM BOTTLE. TP SCH ×2 (08:36→20:03)
[2020-03-02] MEDS: MULTIVITAMIN with MINERAL TABLET. PO SCH (08:36)
[2020-03-02] MEDS: RIVASTIGMINE 9.5MG PATCH. TD SCH (08:36)
[2020-03-02] MEDS: HYDROcodone/APAP 5/325MG 1 TAB TABLET PO SCH (08:38)
[2020-03-02] MEDS: VALPROATE ACID 250 MG/5 ML ORAL SOLUTION PO SCH ×2 (08:39→20:01)
[2020-03-02 16:55] VITALS: BP 149/74
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
[2020-03-02] MEDS: ATORVASTATIN CALCIUM 20 MG TABLET PO SCH (20:02)
[2020-03-02] MEDS: MIRTAZAPINE 7.5 MG TABLET. PO SCH (20:02)
--- NOTE | 2020-03-02 21:56 | PDOC ---
Exam Note: Nikita Note: Please also refer to the separate dictated note~for this date of service dictated separately.~Patient seen individually. Discussed the patient with Nursing staff reviewed the chart.~Reviewed interim history and current functioning. Reviewed vital signs,~Labs/ Radiology~and current medications noted below. Continue current treatment with the changes noted in the dictated addendum note Assessment: Vital Signs/I&O: Vital Signs Date Time Temp Pulse Resp B/P (MAP) Pulse Ox O2 Delivery O2 Flow Rate FiO2 03/02/20 16:55 97.4 71 16 149/74 (99) 96 03/01/20 10:42 Room Air I & O 03/01/20 03/01/20 03/02/20 15:00 23:00 07:00 Intake Total 600 ml 240 ml Balance 600 ml 240 ml Current Medications: I have reviewed the current psychotropics carefully including drug interactions. Risk benefit ratio favors no change other than as noted in my dictated progress note. Diagnosis: Problems: (1) Dementia associated with alcoholism (2) Impulse control disorder, unspecified (3) Anxiety disorder, unspecified (4) Dementia in Alzheimer's disease with depression (5) Dementia in Alzheimer's disease with delusions (6) Major neurocognitive disorder (7) Dementia in Alzheimer's disease with early onset with behavioral disturbance RHONDA PALUMBO MD Mar 02, 2020 21:56
--- NOTE | 2020-03-02 22:31 | NUR ---
Nursing Note: Pt laying in bed upon time of assessment. Pt pleasant and cooperative and took meds hidden in pudding and took the depakene in a medicine cup. Pt thanked nurse and pt closed his eyes.
--- NOTE | 2020-03-03 06:14 | NUR ---
Upon trying to take pt's partials out of his mouth; MALTED MILK MASHER noticed that the roots of a couple of teeth were not attached. Left patients partials in.
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
[2020-03-03 06:31] VITALS: BP 168/74
[2020-03-03] MEDS: POLYETHYLENE GLYCOL 3350 17 GM PACKET. PO SCH (07:59)
[2020-03-03] MEDS: FENOFIBRATE NANOCRYSTALLIZED 145 MG TABLET PO SCH (07:59)
[2020-03-03] MEDS: medroxyPROGESTERone 5 MG TABLET PO SCH (07:59)
[2020-03-03] MEDS: MEMANTINE 5 MG TABLET. PO SCH (07:59)
[2020-03-03] MEDS: SENNOSIDES/DOCUSATE 8.6/50MG TABLET. PO SCH ×2 (07:59→20:43)
[2020-03-03] MEDS: RIVASTIGMINE 9.5MG PATCH. TD SCH (07:59)
[2020-03-03] MEDS: RIVAROXABAN 10 MG TABLET. PO SCH (08:00)
[2020-03-03] MEDS: PANTOPRAZOLE 40 MG TABLET. PO SCH (08:00)
[2020-03-03] MEDS: FOLIC ACID 1 MG TABLET PO SCH (08:00)
[2020-03-03] MEDS: QUEtiapine 25 MG TABLET. PO SCH ×4 (08:00→20:43)
[2020-03-03] MEDS: MULTIVITAMIN with MINERAL TABLET. PO SCH (08:00)
[2020-03-03] MEDS: CITALOPRAM 20 MG TABLET. PO SCH (08:00)
[2020-03-03] MEDS: ASPIRIN CHEWABLE 81 MG TABLET. PO SCH (08:00)
[2020-03-03] MEDS: VALPROATE ACID 250 MG/5 ML ORAL SOLUTION PO SCH ×2 (08:01→20:42)
[2020-03-03] MEDS: NYSTATIN TOPICAL POWDER 15GM BOTTLE. TP SCH ×2 (08:01→20:43)
[2020-03-03] MEDS: HYDROcodone/APAP 5/325MG 1 TAB TABLET PO SCH (08:05)
[2020-03-03 08:45] LABS: BASO % 0 % (0-3); EOS # 0.2 x10^3/uL (0.0-0.7); EOS % 3 % (0-3); HEMATOCRIT 29.7 % (39.0-53.0); HEMOGLOBIN 9.8 g/dL (13.0-17.5); LYMPH % 34 % (24-48); MEAN CORPUSCULAR HEMOGLOBIN 30 pg (25-35); MEAN CORPUSCULAR HGB CONC 33 g/dL (31-37); MEAN CORPUSCULAR VOLUME 90 fL (79-100); MONO # 0.5 x10^3/uL (0.0-1.1); MONO % 9 % (0-9); NEUT # 3.2 x10^3uL (1.8-7.7); NEUT % 54 % (31-73); PLATELET COUNT 250 x10^3/uL (140-400); RED BLOOD COUNT 3.29 x10^6/uL (4.30-5.70); RED CELL DISTRIBUTION WIDTH 14.8 % (11.5-14.5); WHITE BLOOD COUNT 5.8 x10^3/uL (4.0-11.0)
[2020-03-03 09:44] LABS: ALBUMIN 2.6 g/dL (3.4-5.0); ALBUMIN/GLOBULIN RATIO 0.7 (1.0-1.7); ALK PHOS 62 U/L (46-116); ALT (SGPT) 15 U/L (16-63); ANION GAP 9 (6-14); AST (SGOT) 20 U/L (15-37); BLOOD UREA NITROGEN 16 mg/dL (8-26); BUN/CREATININE RATIO 13 (6-20); CARBON DIOXIDE 23 mmol/L (21-32); CHLORIDE 112 mmol/L (98-107); CREATININE 1.2 mg/dL (0.7-1.3); GFR 58.7; GLUCOSE 86 mg/dL (70-99); POTASSIUM 4.3 mmol/L (3.5-5.1); SODIUM 144 mmol/L (136-145); TOTAL BILIRUBIN 0.4 mg/dL (0.2-1.0); TOTAL PROTEIN 6.2 g/dL (6.4-8.2)
[2020-03-03 09:53] LABS: VAL ACID 27 mcg/mL (50-100)
[2020-03-03 15:49] VITALS: BP 168/83
--- NOTE | 2020-03-03 16:19 | NUR ---
Pt has been drowsy today. Did not take liquid depakote as pt was too sleepy to drink. Dr Jimenez here to see pt in afternoon. Showed dr dr smith warm welt to r shoulder area. Also showed that Exelon was leaving similar shaped gray after being removed each day. Stated it was probably contact dermatitis from adhesive. Will notify dr mondragon. Also reported to dr about partials digging into gums and being attached to caried teeth. Partial was removed with difficulty. Mouth care done. Order for ABT prophylactically.
[2020-03-03] MEDS: MIRTAZAPINE 7.5 MG TABLET. PO SCH (20:42)
[2020-03-03] MEDS: ATORVASTATIN CALCIUM 20 MG TABLET PO SCH (20:43)
[2020-03-03] MEDS: AMOXICILLIN 250 MG CAPSULE PO SCH (20:45)
[2020-03-03] MEDS: traZODone 50 MG TABLET. PO PRN (21:01)
--- NOTE | 2020-03-03 21:54 | PDOC ---
Exam Note: Nikita Note: Please also refer to the separate dictated note~for this date of service dictated separately.~Patient seen individually. Discussed the patient with Nursing staff reviewed the chart.~Reviewed interim history and current functioning. Reviewed vital signs,~Labs/ Radiology~and current medications noted below. Continue current treatment with the changes noted in the dictated addendum note Assessment: Vital Signs/I&O: Vital Signs Date Time Temp Pulse Resp B/P (MAP) Pulse Ox O2 Delivery O2 Flow Rate FiO2 03/03/20 15:49 97.8 77 18 168/83 (111) 95 Room Air I & O 03/02/20 03/02/20 03/03/20 15:00 23:00 07:00 Intake Total 480 ml 100 ml Balance 480 ml 100 ml Labs: Laboratory Tests Test 03/03/20 08:15 White Blood Count 5.8 x10^3/uL (4.0-11.0) Red Blood Count 3.29 x10^6/uL (4.30-5.70) L Hemoglobin 9.8 g/dL (13.0-17.5) L Hematocrit 29.7 % (39.0-53.0) L Mean Corpuscular Volume 90 fL (79-100) Mean Corpuscular Hemoglobin 30 pg (25-35) Mean Corpuscular Hemoglobin Concent 33 g/dL (31-37) Red Cell Distribution Width 14.8 % (11.5-14.5) H Platelet Count 250 x10^3/uL (140-400) Neutrophils (%) (Auto) 54 % (31-73) Lymphocytes (%) (Auto) 34 % (24-48) Monocytes (%) (Auto) 9 % (0-9) Eosinophils (%) (Auto) 3 % (0-3) Basophils (%) (Auto) 0 % (0-3) Neutrophils # (Auto) 3.2 x10^3uL (1.8-7.7) Lymphocytes # (Auto) 2.0 x10^3/uL (1.0-4.8) Monocytes # (Auto) 0.5 x10^3/uL (0.0-1.1) Eosinophils # (Auto) 0.2 x10^3/uL (0.0-0.7) Basophils # (Auto) 0.0 x10^3/uL (0.0-0.2) Sodium Level 144 mmol/L (136-145) Potassium Level 4.3 mmol/L (3.5-5.1) Chloride Level 112 mmol/L (98-107) H Carbon Dioxide Level 23 mmol/L (21-32) Anion Gap 9 (6-14) Blood Urea Nitrogen 16 mg/dL (8-26) Creatinine 1.2 mg/dL (0.7-1.3) Estimated GFR (Cockcroft-Gault) 58.7 BUN/Creatinine Ratio 13 (6-20) Glucose Level 86 mg/dL (70-99) Calcium Level 9.0 mg/dL (8.5-10.1) Total Bilirubin 0.4 mg/dL (0.2-1.0) Aspartate Amino Transferase (AST) 20 U/L (15-37) Alanine Aminotransferase (ALT) 15 U/L (16-63) L Alkaline Phosphatase 62 U/L (46-116) Total Protein 6.2 g/dL (6.4-8.2) L Albumin 2.6 g/dL (3.4-5.0) L Albumin/Globulin Ratio 0.7 (1.0-1.7) L Valproic Acid Level 27 mcg/mL (50-100) L Valproic Acid Last Dose Date 03/02/20 Valproic Acid Last Dose Time 2100 Current Medications: Meds: Current Medications Medications (Trade) Dose Ordered Sig/Julio Route PRN Reason Start Time Stop Time Status Last Admin Dose Admin Amoxicillin (Amoxil) 500 mg TID PO 03/03/20 21:00 03/08/20 20:59 03/03/20 20:45 Trazodone HCl (Desyrel) 50 mg PRN QHS PRN PO INSOMNIA, MAY REPEAT X1 03/03/20 19:45 03/03/20 21:01 I have reviewed the current psychotropics carefully including drug interactions. Risk benefit ratio favors no change other than as noted in my dictated progress note. Diagnosis: Problems: (1) Mild cognitive impairment (2) Dementia associated with alcoholism (3) Impulse control disorder, unspecified (4) Anxiety disorder, unspecified (5) Dementia in Alzheimer's disease with depression (6) Dementia in Alzheimer's disease with delusions (7) Major neurocognitive disorder (8) Dementia in Alzheimer's disease with early onset with behavioral disturbance LINWOOD,MAN M MD Mar 03, 2020 21:54
--- NOTE | 2020-03-03 23:33 | NUR ---
Pt in bed this evening. Pt disorganized and restless, setting off bed alarm numerous times. Compliant with crushed medications. PRN Trazodone administered.
[2020-03-04 05:45] VITALS: BP 163/84
[2020-03-04] MEDS: FENOFIBRATE NANOCRYSTALLIZED 145 MG TABLET PO SCH (07:43)
[2020-03-04] MEDS: RIVAROXABAN 10 MG TABLET. PO SCH (07:43)
[2020-03-04] MEDS: FOLIC ACID 1 MG TABLET PO SCH (07:43)
[2020-03-04] MEDS: QUEtiapine 25 MG TABLET. PO SCH ×4 (07:43→20:15)
[2020-03-04] MEDS: medroxyPROGESTERone 5 MG TABLET PO SCH (07:43)
[2020-03-04] MEDS: PANTOPRAZOLE 40 MG TABLET. PO SCH (07:43)
[2020-03-04] MEDS: ASPIRIN CHEWABLE 81 MG TABLET. PO SCH (07:43)
[2020-03-04] MEDS: AMOXICILLIN 250 MG CAPSULE PO SCH ×3 (07:43→20:15)
[2020-03-04] MEDS: MULTIVITAMIN with MINERAL TABLET. PO SCH (07:43)
[2020-03-04] MEDS: CITALOPRAM 20 MG TABLET. PO SCH (07:43)
[2020-03-04] MEDS: POLYETHYLENE GLYCOL 3350 17 GM PACKET. PO SCH (07:43)
[2020-03-04] MEDS: SENNOSIDES/DOCUSATE 8.6/50MG TABLET. PO SCH ×2 (07:44→20:17)
[2020-03-04] MEDS: VALPROATE ACID 250 MG/5 ML ORAL SOLUTION PO SCH ×2 (07:44→20:17)
[2020-03-04] MEDS: NYSTATIN TOPICAL POWDER 15GM BOTTLE. TP SCH ×2 (07:44→20:18)
[2020-03-04] MEDS: HYDROcodone/APAP 5/325MG 1 TAB TABLET PO SCH (07:45)
[2020-03-04 15:45] VITALS: BP 142/73
--- NOTE | 2020-03-04 17:11 | NUR ---
Pt has been intermittently restless in bed. Combative with cares. Up for shower. Did not do well. Has been compliant with meds. Order received to increase Depakote.
[2020-03-04] MEDS: ATORVASTATIN CALCIUM 20 MG TABLET PO SCH (20:15)
[2020-03-04] MEDS: MIRTAZAPINE 7.5 MG TABLET. PO SCH (20:15)
--- NOTE | 2020-03-04 22:00 | PDOC ---
Exam Note: Nikita Note: Please also refer to the separate dictated note~for this date of service dictated separately.~Patient seen individually. Discussed the patient with Nursing staff reviewed the chart.~Reviewed interim history and current functioning. Reviewed vital signs,~Labs/ Radiology~and current medications noted below. Continue current treatment with the changes noted in the dictated addendum note Assessment: Vital Signs/I&O: Vital Signs Date Time Temp Pulse Resp B/P (MAP) Pulse Ox O2 Delivery O2 Flow Rate FiO2 03/04/20 20:54 99.7 98 03/04/20 15:45 85 16 142/73 (96) Room Air I & O 03/03/20 03/03/20 03/04/20 15:00 23:00 07:00 Intake Total 0 ml 240 ml 120 ml Balance 0 ml 240 ml 120 ml Current Medications: Meds: Current Medications Medications (Trade) Dose Ordered Sig/Julio Route PRN Reason Start Time Stop Time Status Last Admin Dose Admin Valproic Acid (Depakene) 650 mg BID PO 03/04/20 21:00 03/04/20 20:17 I have reviewed the current psychotropics carefully including drug interactions. Risk benefit ratio favors no change other than as noted in my dictated progress note. Diagnosis: Problems: (1) Mild cognitive impairment (2) Dementia associated with alcoholism (3) Impulse control disorder, unspecified (4) Anxiety disorder, unspecified (5) Dementia in Alzheimer's disease with depression (6) Dementia in Alzheimer's disease with delusions (7) Major neurocognitive disorder (8) Dementia in Alzheimer's disease with early onset with behavioral disturbance RHONDA PALUMBO MD Mar 04, 2020 22:00
--- NOTE | 2020-03-04 22:38 | NUR ---
Pt has been restless in bed. Incontinent of bowel. Staff x4 assisted in giving pt bed bath. Intermittently combative during bath. Compliant with crushed medications.
[2020-03-04] MEDS: traZODone 50 MG TABLET. PO PRN (23:35)
[2020-03-05 05:53] VITALS: BP 161/82
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
--- NOTE | 2020-03-05 07:12 | PDOC ---
Exam Note: Nikita Note: This note is a late entry for 03/03/2020 covers elements not covered in my initial note. Subjective: The patient was evaluated on telehealth rounds in the evening of 03/03/2020 with [facility] nursing aid as one of the patients on the unit has tested positive for COVID-19 and unit is on a lockdown with no admission and discharges. That is the reason I am doing telehealth rounds to minimize any further spread of the infection. Nursing report with Danielle MC. He slept 2- 3/4 hours previous night. Valproic acid level is 27 subtherapeutic, somewhat sedated, took his medications orally, at times refusing. He states his partials make it hard for him to take his meds. Partials do seemed to have dug into his gums. Will defer to Dr. Jimenez. He does have welts on his skin where he gets the Exelon patch and we will stop this and the Namenda given the extent stage of his dementia and little benefit possibly from the cholinesterase inhibitors and Na menda. Review of Systems: No CV, , pulmonary, eye, ENT system symptoms on review. Reliability poor. Mental Status Exam: Insight and judgment, recent and remote memory, attention and concentration, fund of knowledge is poor consistent with his diagnoses. Laboratory Data: Reviewed. Impression: Major neurocognitive disorder Alzheimer vascular with delusion, depression, behavioral disturbance. Impulse control disorder unspecified. Anxiety disorder unspecified. Rest unchanged. Plan: We will go ahead and stop the Exelon patch and Namenda due to the welts and risk-benefit ratio favors little benefit from these for him. Start trazodone 50 mg h.s. p.r.n. May repeat x1 for insomnia. Continue rest unchanged. Assessment: Vital Signs/I&O: Vital Signs Date Time Temp Pulse Resp B/P (MAP) Pulse Ox O2 Delivery O2 Flow Rate FiO2 03/05/20 05:53 98.5 70 16 161/82 (108) 93 03/04/20 15:45 Room Air I & O 03/04/20 03/04/20 03/05/20 15:00 23:00 07:00 Intake Total 360 ml 600 ml Balance 360 ml 600 ml Current Medications: Meds: Current Medications Medications (Trade) Dose Ordered Sig/Julio Route PRN Reason Start Time Stop Time Status Last Admin Dose Admin Valproic Acid (Depakene) 650 mg BID PO 03/04/20 21:00 03/04/20 20:17 I have reviewed the current psychotropics carefully including drug interactions. Risk benefit ratio favors no change other than as noted in my dictated progress note. Diagnosis: Problems: (1) Dementia associated with alcoholism (2) Impulse control disorder, unspecified (3) Anxiety disorder, unspecified (4) Dementia in Alzheimer's disease with depression (5) Dementia in Alzheimer's disease with delusions (6) Major neurocognitive disorder (7) Dementia in Alzheimer's disease with early onset with behavioral disturbance RHONDA PALUMBO MD Mar 05, 2020 07:12
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
[2020-03-05] MEDS: medroxyPROGESTERone 5 MG TABLET PO SCH (08:51)
[2020-03-05] MEDS: HYDROcodone/APAP 5/325MG 1 TAB TABLET PO SCH (08:52)
[2020-03-05] MEDS: QUEtiapine 25 MG TABLET. PO SCH ×4 (08:52→20:08)
[2020-03-05] MEDS: FOLIC ACID 1 MG TABLET PO SCH (08:52)
[2020-03-05] MEDS: ASPIRIN CHEWABLE 81 MG TABLET. PO SCH (08:52)
[2020-03-05] MEDS: AMOXICILLIN 250 MG CAPSULE PO SCH ×3 (08:52→20:08)
[2020-03-05] MEDS: FENOFIBRATE NANOCRYSTALLIZED 145 MG TABLET PO SCH (08:53)
[2020-03-05] MEDS: MULTIVITAMIN with MINERAL TABLET. PO SCH (08:53)
[2020-03-05] MEDS: VALPROATE ACID 250 MG/5 ML ORAL SOLUTION PO SCH ×2 (08:53→20:07)
[2020-03-05] MEDS: CITALOPRAM 20 MG TABLET. PO SCH (08:53)
[2020-03-05] MEDS: LACTOBACILLUS RHAMNOSUS GG 1 CAPSULE. PO SCH ×2 (08:53→20:07)
[2020-03-05] MEDS: RIVAROXABAN 10 MG TABLET. PO SCH (08:53)
[2020-03-05] MEDS: PANTOPRAZOLE 40 MG TABLET. PO SCH (08:53)
[2020-03-05] MEDS: POLYETHYLENE GLYCOL 3350 17 GM PACKET. PO SCH (09:00)
[2020-03-05] MEDS: NYSTATIN TOPICAL POWDER 15GM BOTTLE. TP SCH ×2 (09:00→20:08)
[2020-03-05] MEDS: SENNOSIDES/DOCUSATE 8.6/50MG TABLET. PO SCH ×2 (09:00→20:07)
--- NOTE | 2020-03-05 10:32 | NUR ---
Patient sleeping but arousable. Compliant with medication administration and assessment. Takes medication crushed in pudding. Patient did not answer questions. Closed eyes again after care provided. Patient was swabbed again for COVID, compliant with testing. Will continue to monitor.
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
[2020-03-05 16:33] VITALS: BP 146/78
--- NOTE | 2020-03-05 17:29 | NUR ---
CATHY contacted pt brother, Efrain, to notify him that in the weekly covoid screen for the unit, one pt did test positive and to comply with the health department regulations, the unit will quarantine for the next two weeks. Pt continues to be combative with cares but appears to be compliant with his medications crushed in pudding. CATHY encouraged Efrain to contact staff for updates and if anything should change, SW would let him know BRITTNEY.
[2020-03-05] MEDS: ATORVASTATIN CALCIUM 20 MG TABLET PO SCH (20:07)
[2020-03-05] MEDS: MIRTAZAPINE 7.5 MG TABLET. PO SCH (20:07)
[2020-03-05] MEDS: traZODone 50 MG TABLET. PO PRN (20:09)
--- NOTE | 2020-03-05 22:51 | NUR ---
Pt has been restless at times while in bed. Compliant with crushed medications. No agitation or aggression this evening.
[2020-03-06 05:59] VITALS: BP 170/73
--- NOTE | 2020-03-06 07:28 | PDOC ---
Exam Note: Nikita Note: This note is a late entry for 03/05/2020 covers elements not covered in my initial note. Subjective: The patient was evaluated on telehealth rounds in the evening on 03/05/2020 due to COVID-19 pandemic on the unit with Allie, nursing aid. Nursing report was with Yesika MC. She slept 5-3/4 hours previous night. COVID screen is negative. He has been somewhat sedated. Seroquel was held in the evening. He has not been aggressive. Review of Systems: No CV, , pulmonary, eye system symptoms on review. Reliability poor. Mental Status Exam: Insight and judgment, recent and remote memory, attention and concentration, fund of knowledge is poor consistent with his diagnoses. Laboratory Data: Reviewed. Impression: Major neurocognitive disorder Alzheimer vascular with delusion, depression, behavioral disturbance. Impulse control disorder unspecified. Anxiety disorder unspecified. Rest unchanged. Plan: No change from initial note. Dr. Armijo will be covering for me during my vacation from 03/06/2020 to 03/12/2020. Assessment: Vital Signs/I&O: Vital Signs Date Time Temp Pulse Resp B/P (MAP) Pulse Ox O2 Delivery O2 Flow Rate FiO2 03/06/20 05:59 98.6 87 16 170/73 (105) 94 03/04/20 15:45 Room Air I & O 03/05/20 03/05/20 03/06/20 15:00 23:00 07:00 Intake Total 360 ml 280 ml Balance 360 ml 280 ml Labs: Laboratory Tests Test 03/05/20 11:45 SARS-CoV-2 Antigen (Rapid) Negative (NEGATIVE) Current Medications: Meds: Current Medications Medications (Trade) Dose Ordered Sig/Julio Route PRN Reason Start Time Stop Time Status Last Admin Dose Admin Lactobacillus Rhamnosus (Culturelle) 1 cap BID PO 03/05/20 09:00 03/05/20 20:07 I have reviewed the current psychotropics carefully including drug interactions. Risk benefit ratio favors no change other than as noted in my dictated progress note. Diagnosis: Problems: (1) Mild cognitive impairment (2) Dementia associated with alcoholism (3) Impulse control disorder, unspecified (4) Anxiety disorder, unspecified (5) Dementia in Alzheimer's disease with depression (6) Dementia in Alzheimer's disease with delusions (7) Major neurocognitive disorder (8) Dementia in Alzheimer's disease with early onset with behavioral disturbance RHONDA PALUMBO MD Mar 06, 2020 07:28
[2020-03-06] MEDS: LACTOBACILLUS RHAMNOSUS GG 1 CAPSULE. PO SCH ×2 (09:12→20:03)
[2020-03-06] MEDS: ASPIRIN CHEWABLE 81 MG TABLET. PO SCH (09:12)
[2020-03-06] MEDS: AMOXICILLIN 250 MG CAPSULE PO SCH ×3 (09:12→20:02)
[2020-03-06] MEDS: MULTIVITAMIN with MINERAL TABLET. PO SCH (09:12)
[2020-03-06] MEDS: FOLIC ACID 1 MG TABLET PO SCH (09:12)
[2020-03-06] MEDS: SENNOSIDES/DOCUSATE 8.6/50MG TABLET. PO SCH ×2 (09:12→20:03)
[2020-03-06] MEDS: RIVAROXABAN 10 MG TABLET. PO SCH (09:12)
[2020-03-06] MEDS: CITALOPRAM 20 MG TABLET. PO SCH (09:12)
[2020-03-06] MEDS: QUEtiapine 25 MG TABLET. PO SCH ×4 (09:12→20:03)
[2020-03-06] MEDS: medroxyPROGESTERone 5 MG TABLET PO SCH (09:13)
[2020-03-06] MEDS: FENOFIBRATE NANOCRYSTALLIZED 145 MG TABLET PO SCH (09:14)
[2020-03-06] MEDS: HYDROcodone/APAP 5/325MG 1 TAB TABLET PO SCH (09:14)
[2020-03-06] MEDS: PANTOPRAZOLE 40 MG TABLET. PO SCH (09:14)
[2020-03-06] MEDS: POLYETHYLENE GLYCOL 3350 17 GM PACKET. PO SCH (09:15)
[2020-03-06] MEDS: VALPROATE ACID 250 MG/5 ML ORAL SOLUTION PO SCH ×2 (09:15→20:04)
[2020-03-06] MEDS: NYSTATIN TOPICAL POWDER 15GM BOTTLE. TP SCH ×2 (09:16→20:04)
--- NOTE | 2020-03-06 12:39 | NUR ---
Nursing note: Pt sitting up in bed when approached for morning med pass and assessment. He was pleasant, compliant with meds crushed in pudding, and cooperative with his assessment. He had no complaints at time of assessment. Pt was very disorganized. When asked if he could state his birthday, pt laughed and responded "Yeah, I love you." Pt then laid back down in bed and took a short nap. He is currently sitting and eating his lunch. Will continue to monitor.
[2020-03-06 16:13] VITALS: BP 135/69
[2020-03-06] MEDS: ATORVASTATIN CALCIUM 20 MG TABLET PO SCH (20:03)
[2020-03-06] MEDS: MIRTAZAPINE 7.5 MG TABLET. PO SCH (20:03)
--- NOTE | 2020-03-06 21:55 | PN ---
DATE: 03/06/2020 SUBJECTIVE: The patient was evaluated on daily rounds, met with the staff, chart reviewed. The patient continues to be confused, labile, needing constant supervision. The patient has period of combative behavior. Staff reports no falls and no other major medical issues. OBSERVATION: VITAL SIGNS: Temperature 98.6, blood pressure 170/73, pulse 87, respirations 16, O2 sat 94%. GENERAL: Slept about 7 hours last night. CURRENT MEDICATIONS: Includes Depakote 650 mg twice a day, mirtazapine 7.5 mg at night, also trazodone 50 mg at night p.r.n., Seroquel 25 mg t.i.d. p.o., citalopram 20 mg daily and Seroquel 25 mg at night. The patient is not exhibiting any side effects at this time. ASSESSMENT: 1. 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 PLAN: Continue with the current treatment plan. LENGTH OF STAY: Five days. MAXIM ARROYO MD DR: DES/mildred JOB#: [id number] / [id number]
--- NOTE | 2020-03-06 23:24 | NUR ---
At HS med pass pt was in in bed and was pleasant and cooperative. He was only able to give name and ODB and was having a rambling largely incoherent conversation. Meds were taken crushed in pudding.
[2020-03-07 06:21] LABS: BASO % 0 % (0-3); EOS # 0.1 x10^3/uL (0.0-0.7); EOS % 2 % (0-3); HEMATOCRIT 29.5 % (39.0-53.0); HEMOGLOBIN 9.5 g/dL (13.0-17.5); LYMPH # 2.3 x10^3/uL (1.0-4.8); LYMPH % 33 % (24-48); MEAN CORPUSCULAR HEMOGLOBIN 30 pg (25-35); MEAN CORPUSCULAR HGB CONC 32 g/dL (31-37); MEAN CORPUSCULAR VOLUME 92 fL (79-100); MONO # 0.6 x10^3/uL (0.0-1.1); MONO % 9 % (0-9); NEUT # 3.9 x10^3uL (1.8-7.7); NEUT % 56 % (31-73); PLATELET COUNT 232 x10^3/uL (140-400); RED BLOOD COUNT 3.21 x10^6/uL (4.30-5.70); RED CELL DISTRIBUTION WIDTH 15.1 % (11.5-14.5); WHITE BLOOD COUNT 6.9 x10^3/uL (4.0-11.0)
[2020-03-07 06:27] VITALS: BP 150/75
[2020-03-07 06:36] LABS: ALBUMIN 2.8 g/dL (3.4-5.0); ALBUMIN/GLOBULIN RATIO 0.8 (1.0-1.7); CALCIUM 8.8 mg/dL (8.5-10.1); CREATININE 1.7 mg/dL (0.7-1.3); GFR 39.3; POTASSIUM 4.4 mmol/L (3.5-5.1); TOTAL BILIRUBIN 0.2 mg/dL (0.2-1.0); TOTAL PROTEIN 6.5 g/dL (6.4-8.2)
[2020-03-07 06:37] LABS: VAL ACID 51 mcg/mL (50-100)
[2020-03-07] MEDS: QUEtiapine 25 MG TABLET. PO SCH ×4 (08:00→20:14)
[2020-03-07] MEDS: AMOXICILLIN 250 MG CAPSULE PO SCH ×3 (09:00→20:14)
[2020-03-07] MEDS: POLYETHYLENE GLYCOL 3350 17 GM PACKET. PO SCH (12:20)
[2020-03-07] MEDS: CITALOPRAM 20 MG TABLET. PO SCH (12:22)
[2020-03-07] MEDS: medroxyPROGESTERone 5 MG TABLET PO SCH (12:22)
[2020-03-07] MEDS: RIVAROXABAN 10 MG TABLET. PO SCH (12:22)
[2020-03-07] MEDS: ASPIRIN CHEWABLE 81 MG TABLET. PO SCH (12:22)
[2020-03-07] MEDS: SENNOSIDES/DOCUSATE 8.6/50MG TABLET. PO SCH ×2 (12:22→20:14)
[2020-03-07] MEDS: VALPROATE ACID 250 MG/5 ML ORAL SOLUTION PO SCH ×2 (12:22→20:13)
[2020-03-07] MEDS: LACTOBACILLUS RHAMNOSUS GG 1 CAPSULE. PO SCH ×2 (12:22→20:14)
[2020-03-07] MEDS: FENOFIBRATE NANOCRYSTALLIZED 145 MG TABLET PO SCH (12:23)
[2020-03-07] MEDS: FOLIC ACID 1 MG TABLET PO SCH (12:23)
[2020-03-07] MEDS: MULTIVITAMIN with MINERAL TABLET. PO SCH (12:23)
[2020-03-07] MEDS: PANTOPRAZOLE 40 MG TABLET. PO SCH (12:23)
[2020-03-07] MEDS: NYSTATIN TOPICAL POWDER 15GM BOTTLE. TP SCH ×2 (12:23→20:15)
[2020-03-07] MEDS: HYDROcodone/APAP 5/325MG 1 TAB TABLET PO SCH (12:25)
--- NOTE | 2020-03-07 15:15 | NUR ---
Nursing note: Pt was allowed to sleep in this morning. He was woken up for lunch and was given his AM meds at that time. He was compliant with meds crushed and mixed with chocolate pudding and was cooperative with his assessment. He has been sitting quietly on the edge of the bed since being woken up. Will continue to monitor.
[2020-03-07 16:01] VITALS: BP 134/76
[2020-03-07] MEDS: MIRTAZAPINE 7.5 MG TABLET. PO SCH (20:14)
[2020-03-07] MEDS: ATORVASTATIN CALCIUM 20 MG TABLET PO SCH (20:14)
--- NOTE | 2020-03-07 21:40 | PN ---
DATE: 03/07/2020 SUBJECTIVE: The patient was evaluated today by tele rounds, discussed with the staff, reviewed current medications and the labs. Staff reports no major behavior problems. OBSERVATION: VITAL SIGNS: Temperature 98.2, blood pressure 150/79, pulse 79, respirations 16, O2 sat 97%. GENERAL: Slept about 6 hours last night. CURRENT MEDICATIONS: The patient's current medication includes Depakote 650 mg twice a day, mirtazapine 7.5 mg at night, trazodone 50 mg at night p.r.n., Seroquel 25 mg t.i.d. p.o., citalopram 20 mg daily, also Seroquel 25 mg at night. The patient is not having any side effects. Staff reports no falls. 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 PLAN: Continue with the current treatment plan. LENGTH OF STAY: 5 days. MAXIM ARROYO MD DR: DES/mildred JOB#: [id number] / [id number]
--- NOTE | 2020-03-07 23:51 | NUR ---
Pt has been in his room tonight he sat on bed side for awhile and is now laying down sleeping. He was cooperative with meds in pudding and juice. He responds to staff with mainly incomprehensible speech and has had no behaviors tonight.
[2020-03-08 06:33] VITALS: BP 127/53
[2020-03-08] MEDS: QUEtiapine 25 MG TABLET. PO SCH ×4 (08:00→19:35)
[2020-03-08] MEDS: NYSTATIN TOPICAL POWDER 15GM BOTTLE. TP SCH ×2 (09:00→19:36)
[2020-03-08] MEDS: AMOXICILLIN 250 MG CAPSULE PO SCH ×2 (09:00→12:22)
[2020-03-08] MEDS: POLYETHYLENE GLYCOL 3350 17 GM PACKET. PO SCH (12:21)
[2020-03-08] MEDS: VALPROATE ACID 250 MG/5 ML ORAL SOLUTION PO SCH ×2 (12:21→19:35)
[2020-03-08] MEDS: PANTOPRAZOLE 40 MG TABLET. PO SCH (12:21)
[2020-03-08] MEDS: FENOFIBRATE NANOCRYSTALLIZED 145 MG TABLET PO SCH (12:22)
[2020-03-08] MEDS: FOLIC ACID 1 MG TABLET PO SCH (12:22)
[2020-03-08] MEDS: medroxyPROGESTERone 5 MG TABLET PO SCH (12:22)
[2020-03-08] MEDS: RIVAROXABAN 10 MG TABLET. PO SCH (12:22)
[2020-03-08] MEDS: MULTIVITAMIN with MINERAL TABLET. PO SCH (12:22)
[2020-03-08] MEDS: LACTOBACILLUS RHAMNOSUS GG 1 CAPSULE. PO SCH ×2 (12:22→19:35)
[2020-03-08] MEDS: CITALOPRAM 20 MG TABLET. PO SCH (12:22)
[2020-03-08] MEDS: SENNOSIDES/DOCUSATE 8.6/50MG TABLET. PO SCH ×2 (12:23→19:36)
[2020-03-08] MEDS: ASPIRIN CHEWABLE 81 MG TABLET. PO SCH (12:25)
[2020-03-08] MEDS: CHOLECALCIFEROL (VITAMIN D3) 50,000 UNIT CAPSULE PO SCH (12:26)
[2020-03-08] MEDS: HYDROcodone/APAP 5/325MG 1 TAB TABLET PO SCH (12:26)
--- NOTE | 2020-03-08 15:24 | NUR ---
Nursing note: Pt slept through the morning until he was woken up for lunch. Pt was compliant with his meds crushed in pudding at that time. After lunch pt was brought outside on the patio to get some fresh air to allow for his room to be cleaned. He is currently back in bed sleeping. Will continue to monitor.
[2020-03-08 15:46] VITALS: BP 143/78
[2020-03-08] MEDS: MIRTAZAPINE 7.5 MG TABLET. PO SCH (19:35)
[2020-03-08] MEDS: ATORVASTATIN CALCIUM 20 MG TABLET PO SCH (19:35)
--- NOTE | 2020-03-08 19:50 | NUR ---
Pt was sitting up in bed eating HS snack and taking meds. He is much more alert tonight. A few minutes later pt choked and was coughing forcefully and brought up thick phlegm. Dr Marcial called and orders received.
--- NOTE | 2020-03-08 20:33 | PN ---
DATE: 03/08/2020 SUBJECTIVE: He continues to show significant mood swings and also feeling angry at times. VITAL SIGNS: The patient's vital signs stable. Slept about 6-1/2 hours last night, ate 70% of his meals. Staff reports no falls. MEDICATIONS: Reviewed. Currently on Depakote 650 mg b.i.d., mirtazapine 7.5 mg at night, trazodone 50 mg at night p.r.n. and Seroquel 25 mg t.i.d. p.o. The patient is also on Seroquel 25 mg at night and also citalopram 20 mg daily. The patient is not showing any side effects to medications. The patient's lab reviewed. 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 PLAN: To continue with the current treatment plan. The patient is planned for discharge by 03/20/2020 to return to [facility]. MAXIM ARROYO MD DR: DES/mildred JOB#: [id number] / [id number]
--- NOTE | 2020-03-08 20:48 | RAD ---
Chest AP portable at 1952: Reason for examination: Increased sputum and choking. The heart size is normal. Mediastinum is unremarkable. Lung mensah are clear except for calcified granuloma mid right lung field. No acute bony abnormalities are seen. Impression: No acute cardiopulmonary disease. Electronically signed by: Corinne Davies MD (03/08/2020 8:45 PM) [facility]
--- NOTE | 2020-03-08 22:51 | NUR ---
Pt sleeping now, respirations unlabored, no further choking episode. No behaviors tonight.
[2020-03-09 05:44] VITALS: BP 149/83
[2020-03-09] MEDS: POLYETHYLENE GLYCOL 3350 17 GM PACKET. PO SCH (07:49)
[2020-03-09] MEDS: medroxyPROGESTERone 5 MG TABLET PO SCH (07:49)
[2020-03-09] MEDS: QUEtiapine 25 MG TABLET. PO SCH ×4 (07:49→20:21)
[2020-03-09] MEDS: LACTOBACILLUS RHAMNOSUS GG 1 CAPSULE. PO SCH ×2 (07:49→20:21)
[2020-03-09] MEDS: CITALOPRAM 20 MG TABLET. PO SCH (07:49)
[2020-03-09] MEDS: ASPIRIN CHEWABLE 81 MG TABLET. PO SCH (07:50)
[2020-03-09] MEDS: RIVAROXABAN 10 MG TABLET. PO SCH (07:50)
[2020-03-09] MEDS: NYSTATIN TOPICAL POWDER 15GM BOTTLE. TP SCH ×2 (07:50→20:22)
[2020-03-09] MEDS: FOLIC ACID 1 MG TABLET PO SCH (07:50)
[2020-03-09] MEDS: FENOFIBRATE NANOCRYSTALLIZED 145 MG TABLET PO SCH (07:50)
[2020-03-09] MEDS: SENNOSIDES/DOCUSATE 8.6/50MG TABLET. PO SCH ×2 (07:50→20:21)
[2020-03-09] MEDS: MULTIVITAMIN with MINERAL TABLET. PO SCH (07:50)
[2020-03-09] MEDS: PANTOPRAZOLE 40 MG TABLET. PO SCH (07:50)
[2020-03-09] MEDS: VALPROATE ACID 250 MG/5 ML ORAL SOLUTION PO SCH ×2 (07:51→20:20)
[2020-03-09] MEDS: HYDROcodone/APAP 5/325MG 1 TAB TABLET PO SCH (07:52)
--- NOTE | 2020-03-09 09:30 | NUR ---
Covid and rapid done and sent to lab.
--- NOTE | 2020-03-09 14:27 | NUR ---
Reported by night nurse that skin tag on left buttock had been torn and was loose. Dr Marcial notified. Order received to snip skin. When assessed, skin around tag was intact. Tag attached by pencil diameter skin. This tag appears vascular at site. Will leave intact and notify
[2020-03-09 16:01] VITALS: BP 136/86
[2020-03-09] MEDS: MIRTAZAPINE 7.5 MG TABLET. PO SCH (20:20)
[2020-03-09] MEDS: ATORVASTATIN CALCIUM 20 MG TABLET PO SCH (20:21)
[2020-03-09 20:34] VITALS: BP 161/87
--- NOTE | 2020-03-09 21:52 | PN ---
DATE: 03/09/2020 SUBJECTIVE: The patient was seen today by telehealth, also met with the staff, chart reviewed. The patient continues to show increased anxiety, some agitation, also having physical problems. Apparently, he has swelling of the right side of the face and also the lymph node enlargement in the neck. The patient was started on antibiotics. Staff also reports he choked last night and is scheduled to have a swallow study. OBSERVATION: VITAL SIGNS: Temperature 98.5, blood pressure 149/83, pulse 74, respirations 16, O2 sat 98%. GENERAL: Slept about 8 hours last night. CURRENT MEDICATIONS: The patient's current medications include Depakote 650 mg b.i.d., mirtazapine 7.5 mg at night, trazodone 50 mg at night p.r.n. and Seroquel 25 mg t.i.d. p.o. and 25 mg at night. The patient is also on citalopram 20 mg daily. The patient denies of any side effects to medication. ASSESSMENT: Major neurocognitive disorder, multifactorial secondary to alcohol or vascular and possibly Alzheimer's with delusion, depression and behavioral disturbances. PLAN: To continue with the treatment. The patient is planned for discharge on 03/20/2020. MAXIM ARROYO MD DR: DES/mildred JOB#: [id number] / [id number]
--- NOTE | 2020-03-09 23:32 | NUR ---
Nursing Note The patient was located in his room for his assessment and medication pass. The patient was calm and cooperative during interactions with this nurse. The patient took his medication crushed in chocolate ice cream and grape juice. The patient has had loose stools today so his senna was held. The patient is currently sleeping in his room.
[2020-03-10 06:00] VITALS: BP 175/77
[2020-03-10] MEDS: POLYETHYLENE GLYCOL 3350 17 GM PACKET. PO SCH (07:45)
[2020-03-10] MEDS: MULTIVITAMIN with MINERAL TABLET. PO SCH (07:46)
[2020-03-10] MEDS: ASPIRIN CHEWABLE 81 MG TABLET. PO SCH (07:46)
[2020-03-10] MEDS: PANTOPRAZOLE 40 MG TABLET. PO SCH (07:46)
[2020-03-10] MEDS: medroxyPROGESTERone 5 MG TABLET PO SCH (07:46)
[2020-03-10] MEDS: RIVAROXABAN 10 MG TABLET. PO SCH (07:46)
[2020-03-10] MEDS: VALPROATE ACID 250 MG/5 ML ORAL SOLUTION PO SCH ×2 (07:46→20:31)
[2020-03-10] MEDS: SENNOSIDES/DOCUSATE 8.6/50MG TABLET. PO SCH ×2 (07:47→20:32)
[2020-03-10] MEDS: FOLIC ACID 1 MG TABLET PO SCH (07:47)
[2020-03-10] MEDS: QUEtiapine 25 MG TABLET. PO SCH ×4 (07:47→20:31)
[2020-03-10] MEDS: FENOFIBRATE NANOCRYSTALLIZED 145 MG TABLET PO SCH (07:47)
[2020-03-10] MEDS: LACTOBACILLUS RHAMNOSUS GG 1 CAPSULE. PO SCH ×2 (07:47→20:31)
[2020-03-10] MEDS: CITALOPRAM 20 MG TABLET. PO SCH (07:47)
[2020-03-10] MEDS: HYDROcodone/APAP 5/325MG 1 TAB TABLET PO SCH (07:49)
[2020-03-10] MEDS: NYSTATIN TOPICAL POWDER 15GM BOTTLE. TP SCH ×2 (07:50→20:32)
--- NOTE | 2020-03-10 12:29 | NUR ---
Speech called regarding pt condition. Pt has not has not had anymore episodes of choking. Speech recommended keeping pt on nectar thick liquids.
[2020-03-10 16:11] VITALS: BP 153/65
--- NOTE | 2020-03-10 16:39 | NUR ---
Pt up in bed for meals. Resistive to cares. Calm rest of times. Has been compliant with meds in pudding.
[2020-03-10] MEDS: ATORVASTATIN CALCIUM 20 MG TABLET PO SCH (20:31)
[2020-03-10] MEDS: MIRTAZAPINE 7.5 MG TABLET. PO SCH (20:31)
--- NOTE | 2020-03-10 22:25 | NUR ---
Pt located awake in bed this evening. Pt calm, rambling at times. Compliant with crushed medications and nectar thick liquid.
[2020-03-11 06:02] VITALS: BP 176/70
[2020-03-11] MEDS: medroxyPROGESTERone 5 MG TABLET PO SCH (07:41)
[2020-03-11] MEDS: RIVAROXABAN 10 MG TABLET. PO SCH (07:41)
[2020-03-11] MEDS: ASPIRIN CHEWABLE 81 MG TABLET. PO SCH (07:41)
[2020-03-11] MEDS: POLYETHYLENE GLYCOL 3350 17 GM PACKET. PO SCH (07:41)
[2020-03-11] MEDS: PANTOPRAZOLE 40 MG TABLET. PO SCH (07:41)
[2020-03-11] MEDS: FENOFIBRATE NANOCRYSTALLIZED 145 MG TABLET PO SCH (07:41)
[2020-03-11] MEDS: FOLIC ACID 1 MG TABLET PO SCH (07:41)
[2020-03-11] MEDS: LACTOBACILLUS RHAMNOSUS GG 1 CAPSULE. PO SCH ×2 (07:41→20:03)
[2020-03-11] MEDS: SENNOSIDES/DOCUSATE 8.6/50MG TABLET. PO SCH ×2 (07:41→20:04)
[2020-03-11] MEDS: CITALOPRAM 20 MG TABLET. PO SCH (07:42)
[2020-03-11] MEDS: QUEtiapine 25 MG TABLET. PO SCH ×4 (07:42→20:03)
[2020-03-11] MEDS: MULTIVITAMIN with MINERAL TABLET. PO SCH (07:42)
[2020-03-11] MEDS: NYSTATIN TOPICAL POWDER 15GM BOTTLE. TP SCH ×2 (07:42→20:04)
[2020-03-11] MEDS: VALPROATE ACID 250 MG/5 ML ORAL SOLUTION PO SCH ×2 (07:42→20:03)
[2020-03-11] MEDS: HYDROcodone/APAP 5/325MG 1 TAB TABLET PO SCH ×2 (07:44→20:03)
--- NOTE | 2020-03-11 08:50 | PN ---
DATE: 03/10/2020 SUBJECTIVE: The patient was seen today by the telehealth rounds, met with the staff, chart reviewed. Staff reports increased confusion and is also complaining of chronic pain. OBSERVATION: VITAL SIGNS: Temperature 98.2, blood pressure 174/77, pulse 69, respirations 18, O2 sat 97 percent. Slept about 6 hours last night. The patient's appetite has improved. Staff reports no falls. MEDICATIONS: The patient's current medications include Depakote 650 mg twice a day, mirtazapine 7.5 mg at night, trazodone 50 mg at night p.r.n. He is also on Seroquel, Celexa 20 mg daily. The patient is not having any side effects to medications. 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 PLAN: To continue with the treatment. The patient's discharge is planned for 03/20/2020. MAXIM ARROYO MD DR: DES/mildred JOB#: [id number] / [id number] JOAQUIM
--- NOTE | 2020-03-11 11:58 | PN ---
DATE: 03/11/2020 SUBJECTIVE: The patient was evaluated by telehealth rounds, met with the staff, chart reviewed. Continues to be confused, restless, not combative. No other behavior problems. OBSERVATION: VITAL SIGNS: Temperature 98.7, blood pressure 176/70, pulse 64, respirations 18, O2 sat 95%. Staff reports no major medical issues, no falls. CURRENT MEDICATIONS: Includes Depakote 650 mg twice a day, mirtazapine 7.5 mg at night, trazodone 50 mg at night p.r.n. The patient is also on Seroquel, Celexa 20 mg daily. 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 PLAN: To continue with the treatment. He is scheduled for discharge on 03/20/2020. MAXIM ARROYO MD DR: DES/mildred JOB#: [id number] / [id number] JOAQUIM
[2020-03-11 16:23] VITALS: BP 145/89
--- NOTE | 2020-03-11 17:22 | NUR ---
Pt up in bed for meals. Has been compliant with cares thus far this shift. Compliant with meds in pudding.
[2020-03-11] MEDS: MIRTAZAPINE 7.5 MG TABLET. PO SCH (20:03)
[2020-03-11] MEDS: ATORVASTATIN CALCIUM 20 MG TABLET PO SCH (20:03)
[2020-03-11] MEDS: traZODone 50 MG TABLET. PO PRN (21:35)
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
[2020-03-12 05:50] VITALS: BP 153/93
[2020-03-12 06:15] LABS: BASO % 0 % (0-3); EOS # 0.1 x10^3/uL (0.0-0.7); EOS % 1 % (0-3); HEMATOCRIT 32.5 % (39.0-53.0); HEMOGLOBIN 10.6 g/dL (13.0-17.5); LYMPH # 2.2 x10^3/uL (1.0-4.8); LYMPH % 46 % (24-48); MEAN CORPUSCULAR HEMOGLOBIN 30 pg (25-35); MEAN CORPUSCULAR HGB CONC 33 g/dL (31-37); MEAN CORPUSCULAR VOLUME 91 fL (79-100); MONO # 0.4 x10^3/uL (0.0-1.1); MONO % 9 % (0-9); NEUT # 2.1 x10^3uL (1.8-7.7); NEUT % 44 % (31-73); PLATELET COUNT 255 x10^3/uL (140-400); RED BLOOD COUNT 3.59 x10^6/uL (4.30-5.70); RED CELL DISTRIBUTION WIDTH 14.2 % (11.5-14.5); WHITE BLOOD COUNT 4.8 x10^3/uL (4.0-11.0)
[2020-03-12 06:23] LABS: ALBUMIN 2.8 g/dL (3.4-5.0); ALBUMIN/GLOBULIN RATIO 0.8 (1.0-1.7); CALCIUM 8.6 mg/dL (8.5-10.1); CREATININE 1.5 mg/dL (0.7-1.3); GFR 45.4; POTASSIUM 4.6 mmol/L (3.5-5.1); TOTAL BILIRUBIN 0.3 mg/dL (0.2-1.0); TOTAL PROTEIN 6.4 g/dL (6.4-8.2)
[2020-03-12] MEDS: VALPROATE ACID 250 MG/5 ML ORAL SOLUTION PO SCH ×2 (09:15→20:14)
[2020-03-12] MEDS: QUEtiapine 25 MG TABLET. PO SCH ×4 (09:15→20:14)
[2020-03-12] MEDS: RIVAROXABAN 10 MG TABLET. PO SCH (09:15)
[2020-03-12] MEDS: HYDROcodone/APAP 5/325MG 1 TAB TABLET PO SCH ×2 (09:15→20:16)
[2020-03-12] MEDS: SENNOSIDES/DOCUSATE 8.6/50MG TABLET. PO SCH ×2 (09:15→20:15)
[2020-03-12] MEDS: medroxyPROGESTERone 5 MG TABLET PO SCH (09:15)
[2020-03-12] MEDS: CITALOPRAM 20 MG TABLET. PO SCH (09:16)
[2020-03-12] MEDS: ASPIRIN CHEWABLE 81 MG TABLET. PO SCH (09:16)
[2020-03-12] MEDS: FENOFIBRATE NANOCRYSTALLIZED 145 MG TABLET PO SCH (09:16)
[2020-03-12] MEDS: PANTOPRAZOLE 40 MG TABLET. PO SCH (09:16)
[2020-03-12] MEDS: MULTIVITAMIN with MINERAL TABLET. PO SCH (09:16)
[2020-03-12] MEDS: LACTOBACILLUS RHAMNOSUS GG 1 CAPSULE. PO SCH ×2 (09:16→20:14)
[2020-03-12] MEDS: FOLIC ACID 1 MG TABLET PO SCH (09:16)
[2020-03-12] MEDS: POLYETHYLENE GLYCOL 3350 17 GM PACKET. PO SCH (09:16)
[2020-03-12] MEDS: NYSTATIN TOPICAL POWDER 15GM BOTTLE. TP SCH ×2 (09:17→20:15)
--- NOTE | 2020-03-12 11:27 | NUR ---
Patient resting in bed with eyes closed at shift change but easy to arouse. Patient compliant with medications and assessment. Medications administered crushed in chocolate pudding without difficulty. No swallowing issues noted. No behaviors noted at this time. Will continue to monitor.
[2020-03-12 16:06] VITALS: BP 152/92
--- NOTE | 2020-03-12 19:51 | PN ---
DATE: 03/12/2020 SUBJECTIVE: The patient was seen today on telehealth rounds, met with the staff and chart reviewed. The patient apparently did not present with any major behavior problems today. He has been alert, but still confused. OBSERVATION: VITAL SIGNS: Stable. GENERAL: The patient's appetite improved. Slept about 7 hours last night. CURRENT MEDICATIONS: Include Depakote 650 mg twice a day, mirtazapine 7.5 mg at night, trazodone 50 mg at night p.r.n. He is also on Seroquel 25 mg at night and 25 mg t.i.d. The patient is not having any side effects to the medications. The patient's lab reviewed. No major medical issues, no falls. ASSESSMENT: Major neurocognitive disorder, multifactorial secondary to alcohol, vascular and Alzheimer's with delusions, depression and behavioral disturbances. PLAN: To continue with the treatment. The patient is planned for discharge on 03/20/2020. MAXIM ARROYO MD DR: DES/mildred JOB#: [id number] / [id number]
[2020-03-12] MEDS: MIRTAZAPINE 7.5 MG TABLET. PO SCH (20:14)
[2020-03-12] MEDS: ATORVASTATIN CALCIUM 20 MG TABLET PO SCH (20:15)
[2020-03-12] MEDS: traZODone 50 MG TABLET. PO PRN (21:05)
--- NOTE | 2020-03-12 23:11 | NUR ---
Pt restless in bed all evening. Compliant with medications crushed in one bite of ice cream. Cussing and agitated with cares. PRN Trazodone administered with HS medications.
[2020-03-13 05:58] VITALS: BP 155/84
[2020-03-13] MEDS: LACTOBACILLUS RHAMNOSUS GG 1 CAPSULE. PO SCH ×2 (08:32→20:17)
[2020-03-13] MEDS: FENOFIBRATE NANOCRYSTALLIZED 145 MG TABLET PO SCH (08:32)
[2020-03-13] MEDS: HYDROcodone/APAP 5/325MG 1 TAB TABLET PO SCH ×2 (08:32→20:17)
[2020-03-13] MEDS: medroxyPROGESTERone 5 MG TABLET PO SCH (08:32)
[2020-03-13] MEDS: MULTIVITAMIN with MINERAL TABLET. PO SCH (08:32)
[2020-03-13] MEDS: FOLIC ACID 1 MG TABLET PO SCH (08:32)
[2020-03-13] MEDS: PANTOPRAZOLE 40 MG TABLET. PO SCH (08:32)
[2020-03-13] MEDS: CITALOPRAM 20 MG TABLET. PO SCH (08:32)
[2020-03-13] MEDS: VALPROATE ACID 250 MG/5 ML ORAL SOLUTION PO SCH ×2 (08:32→20:18)
[2020-03-13] MEDS: RIVAROXABAN 10 MG TABLET. PO SCH (08:32)
[2020-03-13] MEDS: ASPIRIN CHEWABLE 81 MG TABLET. PO SCH (08:33)
[2020-03-13] MEDS: QUEtiapine 25 MG TABLET. PO SCH ×4 (08:33→20:17)
[2020-03-13] MEDS: POLYETHYLENE GLYCOL 3350 17 GM PACKET. PO SCH (08:50)
[2020-03-13] MEDS: SENNOSIDES/DOCUSATE 8.6/50MG TABLET. PO SCH ×2 (08:50→20:17)
[2020-03-13] MEDS: NYSTATIN TOPICAL POWDER 15GM BOTTLE. TP SCH ×2 (08:50→20:19)
[2020-03-13] MEDS ORDERED: medroxyPROGESTERone IM 150 MG/ML VIAL. IM SCH (09:00)
--- NOTE | 2020-03-13 09:32 | NUR ---
Pt asleep in bed this morning. Compliant with crushed medications. No agitation or aggression.
[2020-03-13 15:57] VITALS: BP 101/73
[2020-03-13 19:43] VITALS: BP 123/70
[2020-03-13] MEDS: MIRTAZAPINE 15 MG TABLET PO SCH (20:17)
[2020-03-13] MEDS: ATORVASTATIN CALCIUM 20 MG TABLET PO SCH (20:17)
--- NOTE | 2020-03-13 21:01 | NUR ---
Nursing Note: Location of Patient during Assessment: Pt lying in bed with eyes closed when approached fro medications and assessment but wakes easily. Behaviors Mood and Affect this shift: Pt calm, pleasant, and cooperative. Medication Compliant: Compliant with medications administered crushed in pudding. Assessment Compliant: Cooperative and compliant with assessment. Response After Interventions: Pt remains calm and pleasant, smiling at staff and saying "Thank You".
--- NOTE | 2020-03-13 22:08 | PDOC ---
Exam Note: Nikita Note: Please also refer to the separate dictated note~for this date of service dictated separately.~Patient seen individually. Discussed the patient with Nursing staff reviewed the chart.~Reviewed interim history and current functioning. Reviewed vital signs,~Labs/ Radiology~and current medications noted below. Continue current treatment with the changes noted in the dictated addendum note Assessment: Vital Signs/I&O: Vital Signs Date Time Temp Pulse Resp B/P (MAP) Pulse Ox O2 Delivery O2 Flow Rate FiO2 03/13/20 21:17 97 03/13/20 19:43 97 18 123/70 (87) Room Air 03/13/20 19:41 98.2 I & O 03/12/20 03/12/20 03/13/20 15:00 23:00 07:00 Intake Total 240 ml 240 ml Balance 240 ml 240 ml Current Medications: Meds: Current Medications Medications (Trade) Dose Ordered Sig/Julio Route PRN Reason Start Time Stop Time Status Last Admin Dose Admin Medroxyprogesterone Acetate (Depo-Provera Im) 150 mg Q2WKS IM 03/13/20 09:00 03/13/20 08:33 Mirtazapine (Remeron) 15 mg QHS PO 03/13/20 21:00 03/13/20 20:17 I have reviewed the current psychotropics carefully including drug interactions. Risk benefit ratio favors no change other than as noted in my dictated progress note. Diagnosis: Problems: (1) Mild cognitive impairment (2) Dementia associated with alcoholism (3) Impulse control disorder, unspecified (4) Anxiety disorder, unspecified (5) Dementia in Alzheimer's disease with depression (6) Dementia in Alzheimer's disease with delusions (7) Major neurocognitive disorder (8) Dementia in Alzheimer's disease with early onset with behavioral disturbance RHONDA PALUMBO MD Mar 13, 2020 22:08
[2020-03-14 06:05] VITALS: BP 161/80
[2020-03-14] MEDS: LACTOBACILLUS RHAMNOSUS GG 1 CAPSULE. PO SCH ×2 (07:47→19:27)
[2020-03-14] MEDS: ASPIRIN CHEWABLE 81 MG TABLET. PO SCH (07:47)
[2020-03-14] MEDS: VALPROATE ACID 250 MG/5 ML ORAL SOLUTION PO SCH ×2 (07:47→19:29)
[2020-03-14] MEDS: HYDROcodone/APAP 5/325MG 1 TAB TABLET PO SCH ×2 (07:48→19:31)
[2020-03-14] MEDS: FENOFIBRATE NANOCRYSTALLIZED 145 MG TABLET PO SCH (07:48)
[2020-03-14] MEDS: SENNOSIDES/DOCUSATE 8.6/50MG TABLET. PO SCH ×2 (07:48→19:27)
[2020-03-14] MEDS: PANTOPRAZOLE 40 MG TABLET. PO SCH (07:48)
[2020-03-14] MEDS: QUEtiapine 25 MG TABLET. PO SCH ×5 (07:48→19:27)
[2020-03-14] MEDS: FOLIC ACID 1 MG TABLET PO SCH (07:48)
[2020-03-14] MEDS: MULTIVITAMIN with MINERAL TABLET. PO SCH (07:48)
[2020-03-14] MEDS: medroxyPROGESTERone 5 MG TABLET PO SCH (07:49)
[2020-03-14] MEDS: POLYETHYLENE GLYCOL 3350 17 GM PACKET. PO SCH (07:49)
[2020-03-14] MEDS: RIVAROXABAN 10 MG TABLET. PO SCH (07:49)
[2020-03-14] MEDS: CITALOPRAM 20 MG TABLET. PO SCH (07:49)
[2020-03-14] MEDS: NYSTATIN TOPICAL POWDER 15GM BOTTLE. TP SCH ×2 (07:49→19:31)
--- NOTE | 2020-03-14 10:16 | PDOC ---
Exam Note: Nikita Note: This note is a late entry for 03/13/2020 covers elements not covered in my initial note. Subjective: The patient was evaluated on telehealth rounds in the evening of 03/13/2020 with [facility]. The unit is shut down due to COVID-19 exposure on the unit with no admissions and discharges for now. Dr. Armijo has covered for me for the past several days since I had been on vacation. Reviewed information with Dr. Armijo. Per [facility], the patient seemed to be hallucinating in the morning, reaching out for things. He slept 2-1/4 hours previous night. He remains non-verbal during the telehealth rounds as I met with him. Review of Systems: No CV, , pulmonary, eye, system symptoms on review. Reliability poor. Mental Status Exam: Oriented to himself. Insight and judgment, recent and remote memory, attention and concentration, fund of knowledge is poor consistent with his diagnoses. Laboratory Data: Reviewed. Impression: Major neurocognitive disorder Alzheimer vascular with delusion, depression, behavioral disturbance. Impulse control disorder unspecified. Anxiety disorder unspecified. Rest unchanged. Plan: No change from initial note but we will increase Remeron from 7.5 mg h.s. to 15 mg h.s. Assessment: Vital Signs/I&O: Vital Signs Date Time Temp Pulse Resp B/P (MAP) Pulse Ox O2 Delivery O2 Flow Rate FiO2 03/14/20 09:33 96 03/14/20 06:05 98.6 70 16 161/80 (107) 03/13/20 19:43 Room Air I & O 03/13/20 03/13/20 03/14/20 15:00 23:00 07:00 Intake Total 600 ml 360 ml Balance 600 ml 360 ml Current Medications: Meds: Current Medications Medications (Trade) Dose Ordered Sig/Julio Route PRN Reason Start Time Stop Time Status Last Admin Dose Admin Mirtazapine (Remeron) 15 mg QHS PO 03/13/20 21:00 03/13/20 20:17 I have reviewed the current psychotropics carefully including drug interactions. Risk benefit ratio favors no change other than as noted in my dictated progress note. Diagnosis: Problems: (1) Mild cognitive impairment (2) Dementia associated with alcoholism (3) Impulse control disorder, unspecified (4) Anxiety disorder, unspecified (5) Dementia in Alzheimer's disease with depression (6) Dementia in Alzheimer's disease with delusions (7) Major neurocognitive disorder (8) Dementia in Alzheimer's disease with early onset with behavioral disturbance RHONDA PALUMBO MD Mar 14, 2020 10:16
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
[2020-03-14] MEDS ORDERED: CHOL500021 PO (14:16)
[2020-03-14] MEDS ORDERED: NYST15PO9 TP (14:17)
[2020-03-14] MEDS ORDERED: MAGN24003 PO (14:19)
[2020-03-14] MEDS ORDERED: LACT1CAP21 PO (14:19)
[2020-03-14] MEDS ORDERED: MAG355OR11 PO (14:21)
[2020-03-14] MEDS ORDERED: OLAN5TAB99 PO (14:23)
[2020-03-14] MEDS ORDERED: MIRT15TA PO (14:25)
[2020-03-14] MEDS ORDERED: TRAZ-120 PO (14:26)
[2020-03-14] MEDS ORDERED: VALP250S3 PO (14:28)
[2020-03-14] MEDS ORDERED: METH57CR17 TP (14:29)
[2020-03-14 16:03] VITALS: BP 129/81
[2020-03-14] MEDS: MIRTAZAPINE 15 MG TABLET PO SCH (19:27)
[2020-03-14] MEDS: ATORVASTATIN CALCIUM 20 MG TABLET PO SCH (19:27)
--- NOTE | 2020-03-14 20:34 | NUR ---
Nursing Note: Location of Patient during Assessment: Pt lying in bed with eyes closed when approached fro medications and assessment but wakes easily. Behaviors Mood and Affect this shift: Pt calm, pleasant, and cooperative. Medication Compliant: Compliant with medications administered crushed in pudding and Depakene in apple juice which pt accepts willingly. Assessment Compliant: Cooperative and compliant with assessment. Response After Interventions: Pt remains calm and pleasant, smiling at staff.
--- NOTE | 2020-03-14 21:53 | PDOC ---
Exam Note: Nikita Note: Please also refer to the separate dictated note~for this date of service dictated separately.~Patient seen individually. Discussed the patient with Nursing staff reviewed the chart.~Reviewed interim history and current functioning. Reviewed vital signs,~Labs/ Radiology~and current medications noted below. Continue current treatment with the changes noted in the dictated addendum note Assessment: Vital Signs/I&O: Vital Signs Date Time Temp Pulse Resp B/P (MAP) Pulse Ox O2 Delivery O2 Flow Rate FiO2 03/14/20 20:31 97 03/14/20 19:46 98.3 03/14/20 16:03 71 17 129/81 (97) 03/13/20 19:43 Room Air I & O 03/13/20 03/13/20 03/14/20 15:00 23:00 07:00 Intake Total 600 ml 360 ml Balance 600 ml 360 ml Current Medications: I have reviewed the current psychotropics carefully including drug interactions. Risk benefit ratio favors no change other than as noted in my dictated progress note. Diagnosis: Problems: (1) Mild cognitive impairment (2) Dementia associated with alcoholism (3) Impulse control disorder, unspecified (4) Anxiety disorder, unspecified (5) Dementia in Alzheimer's disease with depression (6) Dementia in Alzheimer's disease with delusions (7) Major neurocognitive disorder (8) Dementia in Alzheimer's disease with early onset with behavioral disturbance RHONDA PALUMBO MD Mar 14, 2020 21:53
[2020-03-15 05:39] VITALS: BP 151/85
[2020-03-15] MEDS: FENOFIBRATE NANOCRYSTALLIZED 145 MG TABLET PO SCH (07:41)
[2020-03-15] MEDS: SENNOSIDES/DOCUSATE 8.6/50MG TABLET. PO SCH ×2 (07:41→19:39)
[2020-03-15] MEDS: ASPIRIN CHEWABLE 81 MG TABLET. PO SCH (07:41)
[2020-03-15] MEDS: LACTOBACILLUS RHAMNOSUS GG 1 CAPSULE. PO SCH ×2 (07:41→19:40)
[2020-03-15] MEDS: RIVAROXABAN 10 MG TABLET. PO SCH (07:41)
[2020-03-15] MEDS: medroxyPROGESTERone 5 MG TABLET PO SCH (07:42)
[2020-03-15] MEDS: MULTIVITAMIN with MINERAL TABLET. PO SCH (07:42)
[2020-03-15] MEDS: FOLIC ACID 1 MG TABLET PO SCH (07:43)
[2020-03-15] MEDS: QUEtiapine 25 MG TABLET. PO SCH ×2 (07:43→19:40)
[2020-03-15] MEDS: PANTOPRAZOLE 40 MG TABLET. PO SCH (07:43)
[2020-03-15] MEDS: CITALOPRAM 20 MG TABLET. PO SCH (07:43)
[2020-03-15] MEDS: HYDROcodone/APAP 5/325MG 1 TAB TABLET PO SCH ×2 (07:43→19:40)
[2020-03-15] MEDS: POLYETHYLENE GLYCOL 3350 17 GM PACKET. PO SCH (07:44)
[2020-03-15] MEDS: VALPROATE ACID 250 MG/5 ML ORAL SOLUTION PO SCH ×2 (07:44→19:42)
[2020-03-15] MEDS: NYSTATIN TOPICAL POWDER 15GM BOTTLE. TP SCH ×2 (07:44→19:40)
[2020-03-15] MEDS: CHOLECALCIFEROL (VITAMIN D3) 50,000 UNIT CAPSULE PO SCH (07:45)
--- NOTE | 2020-03-15 14:41 | NUR ---
Nursing Note Pt lays in bed awakens with touch eats food fed to him by staff, but doesn't initiate eating on his own. No agitation no aggression, meds in food.
[2020-03-15 16:14] VITALS: BP 140/68
[2020-03-15] MEDS: ATORVASTATIN CALCIUM 20 MG TABLET PO SCH (19:39)
[2020-03-15] MEDS: MIRTAZAPINE 15 MG TABLET PO SCH (19:40)
--- NOTE | 2020-03-15 21:06 | NUR ---
Pt lying in bed awake at shift change. Pt restless, disorganized, and confused. Cooperative and compliant with assessment and medications administered crushed in pudding, but combative with cares. Pt lung sounds coarse and he did expectorate a small amount of bloody sputum with a temporal temp of 99.9 and axillary temp of 98.5. Tony Uriostegui notified and new orders received. Awaiting lab and CXR results. Pt currently resting quietly in bed.
[2020-03-15 21:23] LABS: BASO % 0 % (0-3); EOS # 0.1 x10^3/uL (0.0-0.7); EOS % 2 % (0-3); HEMATOCRIT 33.1 % (39.0-53.0); HEMOGLOBIN 10.8 g/dL (13.0-17.5); LYMPH # 1.7 x10^3/uL (1.0-4.8); LYMPH % 42 % (24-48); MEAN CORPUSCULAR HEMOGLOBIN 30 pg (25-35); MEAN CORPUSCULAR HGB CONC 33 g/dL (31-37); MEAN CORPUSCULAR VOLUME 92 fL (79-100); MONO # 0.4 x10^3/uL (0.0-1.1); MONO % 10 % (0-9); NEUT # 1.9 x10^3uL (1.8-7.7); NEUT % 46 % (31-73); PLATELET COUNT 233 x10^3/uL (140-400); RED BLOOD COUNT 3.59 x10^6/uL (4.30-5.70); RED CELL DISTRIBUTION WIDTH 15.1 % (11.5-14.5); WHITE BLOOD COUNT 4.2 x10^3/uL (4.0-11.0)
[2020-03-15 21:31] LABS: CALCIUM 8.7 mg/dL (8.5-10.1); CREATININE 1.6 mg/dL (0.7-1.3); GFR 42.1; POTASSIUM 4.8 mmol/L (3.5-5.1)
[2020-03-15 21:37] LABS: ALBUMIN 2.9 g/dL (3.4-5.0); ALBUMIN/GLOBULIN RATIO 0.8 (1.0-1.7); TOTAL BILIRUBIN 0.2 mg/dL (0.2-1.0); TOTAL PROTEIN 6.5 g/dL (6.4-8.2)
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
--- NOTE | 2020-03-15 21:51 | RAD ---
Examination: CHEST AP ONLY History: Bloody sputum, coarse lung sounds Comparison: None. Findings: AP portable upright frontal view of the chest was obtained. The cardiomediastinal silhouette is normal. Lungs are clear. Calcified granuloma involves the right lower lung field. Old right rib fractures noted. There is no pneumothorax. No pleural effusion is appreciated. No acute bone abnormality. IMPRESSION: No acute cardiopulmonary process. Electronically signed by: Gabriele Figueroa MD (03/15/2020 9:48 PM) [id number]
--- NOTE | 2020-03-15 21:58 | PDOC ---
Exam Note: Nikita Note: Please also refer to the separate dictated note~for this date of service dictated separately.~Patient seen individually. Discussed the patient with Nursing staff reviewed the chart.~Reviewed interim history and current functioning. Reviewed vital signs,~Labs/ Radiology~and current medications noted below. Continue current treatment with the changes noted in the dictated addendum note Assessment: Vital Signs/I&O: Vital Signs Date Time Temp Pulse Resp B/P (MAP) Pulse Ox O2 Delivery O2 Flow Rate FiO2 03/15/20 21:40 98.8 94 03/15/20 16:14 63 18 140/68 (92) Room Air I & O 03/14/20 03/14/20 03/15/20 15:00 23:00 07:00 Intake Total 240 ml 480 ml Balance 240 ml 480 ml Labs: Laboratory Tests Test 03/15/20 20:58 White Blood Count 4.2 x10^3/uL (4.0-11.0) Red Blood Count 3.59 x10^6/uL (4.30-5.70) L Hemoglobin 10.8 g/dL (13.0-17.5) L Hematocrit 33.1 % (39.0-53.0) L Mean Corpuscular Volume 92 fL (79-100) Mean Corpuscular Hemoglobin 30 pg (25-35) Mean Corpuscular Hemoglobin Concent 33 g/dL (31-37) Red Cell Distribution Width 15.1 % (11.5-14.5) H Platelet Count 233 x10^3/uL (140-400) Neutrophils (%) (Auto) 46 % (31-73) Lymphocytes (%) (Auto) 42 % (24-48) Monocytes (%) (Auto) 10 % (0-9) H Eosinophils (%) (Auto) 2 % (0-3) Basophils (%) (Auto) 0 % (0-3) Neutrophils # (Auto) 1.9 x10^3uL (1.8-7.7) Lymphocytes # (Auto) 1.7 x10^3/uL (1.0-4.8) Monocytes # (Auto) 0.4 x10^3/uL (0.0-1.1) Eosinophils # (Auto) 0.1 x10^3/uL (0.0-0.7) Basophils # (Auto) 0.0 x10^3/uL (0.0-0.2) Sodium Level 146 mmol/L (136-145) H Potassium Level 4.8 mmol/L (3.5-5.1) Chloride Level 113 mmol/L (98-107) H Carbon Dioxide Level 25 mmol/L (21-32) Anion Gap 8 (6-14) Blood Urea Nitrogen 30 mg/dL (8-26) H Creatinine 1.6 mg/dL (0.7-1.3) H Estimated GFR (Cockcroft-Gault) 42.1 BUN/Creatinine Ratio 19 (6-20) Glucose Level 111 mg/dL (70-99) H Lactic Acid Level 2.2 mmol/L (0.4-2.0) H Calcium Level 8.7 mg/dL (8.5-10.1) Total Bilirubin 0.2 mg/dL (0.2-1.0) Aspartate Amino Transferase (AST) 17 U/L (15-37) Alanine Aminotransferase (ALT) 14 U/L (16-63) L Alkaline Phosphatase 55 U/L (46-116) Total Protein 6.5 g/dL (6.4-8.2) Albumin 2.9 g/dL (3.4-5.0) L Albumin/Globulin Ratio 0.8 (1.0-1.7) L Current Medications: I have reviewed the current psychotropics carefully including drug interactions. Risk benefit ratio favors no change other than as noted in my dictated progress note. 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
--- NOTE | 2020-03-15 22:02 | NUR ---
Pt lab results called to Dr Jimenez to include Lactic Acid 2.2. No new orders received at this time, continue to monitor.
[2020-03-16 05:23] VITALS: BP 176/95
[2020-03-16] MEDS: VALPROATE ACID 250 MG/5 ML ORAL SOLUTION PO SCH ×2 (07:41→20:02)
[2020-03-16] MEDS: medroxyPROGESTERone 5 MG TABLET PO SCH (07:41)
[2020-03-16] MEDS: ASPIRIN CHEWABLE 81 MG TABLET. PO SCH (07:41)
[2020-03-16] MEDS: PANTOPRAZOLE 40 MG TABLET. PO SCH (07:41)
[2020-03-16] MEDS: MULTIVITAMIN with MINERAL TABLET. PO SCH (07:41)
[2020-03-16] MEDS: SENNOSIDES/DOCUSATE 8.6/50MG TABLET. PO SCH ×2 (07:41→20:03)
[2020-03-16] MEDS: FOLIC ACID 1 MG TABLET PO SCH (07:41)
[2020-03-16] MEDS: LACTOBACILLUS RHAMNOSUS GG 1 CAPSULE. PO SCH ×2 (07:41→20:03)
[2020-03-16] MEDS: CITALOPRAM 20 MG TABLET. PO SCH (07:41)
[2020-03-16] MEDS: FENOFIBRATE NANOCRYSTALLIZED 145 MG TABLET PO SCH (07:42)
[2020-03-16] MEDS: POLYETHYLENE GLYCOL 3350 17 GM PACKET. PO SCH (07:42)
[2020-03-16] MEDS: RIVAROXABAN 10 MG TABLET. PO SCH (07:42)
[2020-03-16] MEDS: NYSTATIN TOPICAL POWDER 15GM BOTTLE. TP SCH ×2 (07:44→20:02)
[2020-03-16] MEDS: HYDROcodone/APAP 5/325MG 1 TAB TABLET PO SCH ×2 (08:54→20:03)
--- NOTE | 2020-03-16 10:20 | NUR ---
PATIENT IS LOCATED IN PT ROOM AT TIME OF ASSESSMENT AND MEDICATION ADMINISTRATION. PATIENT IS MORE ALERT THEN PREVIOUSLY. PATIENT IS PLEASANT AND COOPERATIVE WITH MEDICATIONS CRUSHED IN PUDDING. PATIENT IS RESTING IN ROOM IN BED AT THIS TIME. WILL CONTINUE TO MONITOR.
[2020-03-16 15:37] VITALS: BP 135/86
[2020-03-16] MEDS: ATORVASTATIN CALCIUM 20 MG TABLET PO SCH (20:03)
[2020-03-16] MEDS: QUEtiapine 25 MG TABLET. PO SCH (20:03)
[2020-03-16] MEDS: MIRTAZAPINE 15 MG TABLET PO SCH (20:03)
--- NOTE | 2020-03-16 21:59 | PDOC ---
Exam Note: Nikita Note: Please also refer to the separate dictated note~for this date of service dictated separately.~Patient seen individually. Discussed the patient with Nursing staff reviewed the chart.~Reviewed interim history and current functioning. Reviewed vital signs,~Labs/ Radiology~and current medications noted below. Continue current treatment with the changes noted in the dictated addendum note Assessment: Vital Signs/I&O: Vital Signs Date Time Temp Pulse Resp B/P (MAP) Pulse Ox O2 Delivery O2 Flow Rate FiO2 03/16/20 21:37 97.8 97 03/16/20 15:37 77 17 135/86 (102) Room Air I & O 03/15/20 03/15/20 03/16/20 15:00 23:00 07:00 Intake Total 120 ml 356 ml Balance 120 ml 356 ml Labs: Laboratory Tests Test 03/16/20 00:50 Lactic Acid Level 2.3 mmol/L (0.4-2.0) H Current Medications: I have reviewed the current psychotropics carefully including drug interactions. Risk benefit ratio favors no change other than as noted in my dictated progress note. 

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
[2020-03-17] MEDS: traZODone 50 MG TABLET. PO PRN ×2 (00:53→20:00)
--- NOTE | 2020-03-17 01:00 | NUR ---
Pt awake and restless in bed. Pt hallucinating. PRN Trazodone administered.
[2020-03-17 05:48] VITALS: BP 161/67
[2020-03-17] MEDS: LACTOBACILLUS RHAMNOSUS GG 1 CAPSULE. PO SCH ×2 (08:20→20:00)
[2020-03-17] MEDS: CITALOPRAM 20 MG TABLET. PO SCH (08:20)
[2020-03-17] MEDS: ASPIRIN CHEWABLE 81 MG TABLET. PO SCH (08:20)
[2020-03-17] MEDS: PANTOPRAZOLE 40 MG TABLET. PO SCH (08:20)
[2020-03-17] MEDS: FOLIC ACID 1 MG TABLET PO SCH (08:20)
[2020-03-17] MEDS: SENNOSIDES/DOCUSATE 8.6/50MG TABLET. PO SCH ×2 (08:21→19:58)
[2020-03-17] MEDS: FENOFIBRATE NANOCRYSTALLIZED 145 MG TABLET PO SCH (08:21)
[2020-03-17] MEDS: medroxyPROGESTERone 5 MG TABLET PO SCH (08:21)
[2020-03-17] MEDS: RIVAROXABAN 10 MG TABLET. PO SCH (08:21)
[2020-03-17] MEDS: MULTIVITAMIN with MINERAL TABLET. PO SCH (08:21)
[2020-03-17] MEDS: VALPROATE ACID 250 MG/5 ML ORAL SOLUTION PO SCH (08:21)
[2020-03-17] MEDS: HYDROcodone/APAP 5/325MG 1 TAB TABLET PO SCH ×2 (08:21→19:57)
[2020-03-17] MEDS: POLYETHYLENE GLYCOL 3350 17 GM PACKET. PO SCH (08:22)
[2020-03-17] MEDS: NYSTATIN TOPICAL POWDER 15GM BOTTLE. TP SCH ×2 (08:22→19:59)
--- NOTE | 2020-03-17 09:24 | NUR ---
Patient had a coughing fit this morning for about 10 minutes. Patient suctioned and that appear to help minimally for his situation. Patient finally cleared his throat and was able to relax. order will be placed for speech evaluation due to this being his second coughing episode.
[2020-03-17 16:00] VITALS: BP 122/79
[2020-03-17] MEDS: MIRTAZAPINE 15 MG TABLET PO SCH (19:57)
[2020-03-17] MEDS: ATORVASTATIN CALCIUM 20 MG TABLET PO SCH (19:58)
[2020-03-17] MEDS: QUEtiapine 25 MG TABLET. PO SCH (19:59)
[2020-03-17] MEDS: DIVALPROEX 125 MG CAP.SPRINK PO SCH (20:00)
--- NOTE | 2020-03-17 21:50 | PDOC ---
Exam Note: Nikita Note: Please also refer to the separate dictated note~for this date of service dictated separately.~Patient seen individually. Discussed the patient with Nursing staff reviewed the chart.~Reviewed interim history and current functioning. Reviewed vital signs,~Labs/ Radiology~and current medications noted below. Continue current treatment with the changes noted in the dictated addendum note Assessment: Vital Signs/I&O: Vital Signs Date Time Temp Pulse Resp B/P (MAP) Pulse Ox O2 Delivery O2 Flow Rate FiO2 03/17/20 16:00 97.8 68 18 122/79 (93) 94 Room Air I & O 03/16/20 03/16/20 03/17/20 15:00 23:00 07:00 Intake Total 1050 ml 356 ml Balance 1050 ml 356 ml Current Medications: Meds: Current Medications Medications (Trade) Dose Ordered Sig/Julio Route PRN Reason Start Time Stop Time Status Last Admin Dose Admin Divalproex Sodium (Depakote Sprinkles) 625 mg BID PO 03/17/20 21:00 03/17/20 20:00 I have reviewed the current psychotropics carefully including drug interactions. Risk benefit ratio favors no change other than as noted in my dictated progress note. 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
--- NOTE | 2020-03-17 22:00 | NUR ---
Patient is in his room on assumption of care, awake in bed. He is compliant with assessments and medications crushed in pudding. Stated "Thanks babe" after he took his medication. Appears to be less restless and hallucinating less than baseline, but has been observed intermittently reaching up to grab something that isn't there. No agitation. Does not appear to be experiencing any pain or discomfort. Patient appears to be sleeping comfortably at present time. Will continue to monitor.
[2020-03-18 06:25] VITALS: BP 142/84
--- NOTE | 2020-03-18 06:35 | PDOC ---
Exam Note: Nikita Note: This note is a late entry for 03/16/2020 covers elements not covered in my initial note. Subjective: The patient was evaluated on telehealth rounds in the evening of 03/16/2020 with [facility] nursing aid. The unit is shut down due to COVID-19 exposure on the unit with no admissions and discharges per Department of Health directives. Per Noemi RN in the evening, the patient slept 9-1/2 hours previous night. Previous night he had temperature, had cough. Chest x-ray is negative. Lactic acid is increased, we will defer to Dr. Jimenez. Review of Systems: Positive for tiredness. No CV, , pulmonary, eye, ENT system symptoms on review. Mental Status Exam: Oriented to himself. Insight and judgment, recent and remote memory, attention and concentration, fund of knowledge is poor consistent with his diagnoses. Laboratory Data: Reviewed. Impression: Major neurocognitive disorder Alzheimer vascular with delusion, depression, behavioral disturbance. Impulse control disorder unspecified. Anxiety disorder unspecified. Rest unchanged. Plan: We will defer medical management to Dr. Jimenez. Assessment: Vital Signs/I&O: Vital Signs Date Time Temp Pulse Resp B/P (MAP) Pulse Ox O2 Delivery O2 Flow Rate FiO2 03/18/20 06:25 98.3 78 16 142/84 (103) 97 Room Air I & O 03/17/20 03/17/20 03/18/20 15:00 23:00 07:00 Intake Total 60 ml 0 ml 0 ml Balance 60 ml 0 ml 0 ml Current Medications: Meds: Current Medications Medications (Trade) Dose Ordered Sig/Julio Route PRN Reason Start Time Stop Time Status Last Admin Dose Admin Divalproex Sodium (Depakote Sprinkles) 625 mg BID PO 03/17/20 21:00 03/17/20 20:00 I have reviewed the current psychotropics carefully including drug interactions. Risk benefit ratio favors no change other than as noted in my dictated progress note. 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
--- NOTE | 2020-03-18 06:45 | PDOC ---
Exam Note: Nikita Note: This note is a late entry for 03/17/2020 covers elements not covered in my initial note. Subjective: The patient was evaluated on telehealth rounds in evening of 03/17/2020 with [facility]. The unit is shut down due to COVID-19 exposure on the unit with no admissions and discharges per Department of Health directives. Per Frank RN in the evening, the patient slept 5-1/2 hours previous night. He continues to have cough, getting speech evaluation to make sure he is not aspirating, combative with cares, hallucinating previous night. Chemistry profile unremarkable but WBC is increased from approximately 4 to 11. We will repeat it in the morning. Review of Systems: No CV, , pulmonary, eye, ENT system symptoms on review. Ambulation impaired. Mental Status Exam: Oriented to himself. He has been quite withdrawn, isolative. Verbal responses are monosyllabic. Insight and judgment, recent and remote memory, attention and concentration, fund of knowledge is poor consistent with his diagnoses. Laboratory Data: Reviewed. Impression: Major neurocognitive disorder Alzheimer vascular with delusion, depression, behavioral disturbance. Impulse control disorder unspecified. Anxiety disorder unspecified. Rest unchanged. Plan: No change from initial note. Assessment: Vital Signs/I&O: Vital Signs Date Time Temp Pulse Resp B/P (MAP) Pulse Ox O2 Delivery O2 Flow Rate FiO2 03/18/20 06:25 98.3 78 16 142/84 (103) 97 Room Air I & O 03/17/20 03/17/20 03/18/20 15:00 23:00 07:00 Intake Total 60 ml 0 ml 0 ml Balance 60 ml 0 ml 0 ml Current Medications: Meds: Current Medications Medications (Trade) Dose Ordered Sig/Julio Route PRN Reason Start Time Stop Time Status Last Admin Dose Admin Divalproex Sodium (Depakote Sprinkles) 625 mg BID PO 03/17/20 21:00 03/17/20 20:00 I have reviewed the current psychotropics carefully including drug interactions. Risk benefit ratio favors no change other than as noted in my dictated progress note. 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
[2020-03-18] MEDS: LACTOBACILLUS RHAMNOSUS GG 1 CAPSULE. PO SCH ×2 (08:13→19:51)
[2020-03-18] MEDS: PANTOPRAZOLE 40 MG TABLET. PO SCH (08:13)
[2020-03-18] MEDS: FOLIC ACID 1 MG TABLET PO SCH (08:13)
[2020-03-18] MEDS: ASPIRIN CHEWABLE 81 MG TABLET. PO SCH (08:13)
[2020-03-18] MEDS: CITALOPRAM 20 MG TABLET. PO SCH (08:13)
[2020-03-18] MEDS: HYDROcodone/APAP 5/325MG 1 TAB TABLET PO SCH ×2 (08:13→19:55)
[2020-03-18] MEDS: FENOFIBRATE NANOCRYSTALLIZED 145 MG TABLET PO SCH (08:13)
[2020-03-18] MEDS: medroxyPROGESTERone 5 MG TABLET PO SCH (08:14)
[2020-03-18] MEDS: RIVAROXABAN 10 MG TABLET. PO SCH (08:14)
[2020-03-18] MEDS: POLYETHYLENE GLYCOL 3350 17 GM PACKET. PO SCH (08:14)
[2020-03-18] MEDS: DIVALPROEX 125 MG CAP.SPRINK PO SCH ×2 (08:14→19:52)
[2020-03-18] MEDS: MULTIVITAMIN with MINERAL TABLET. PO SCH (08:14)
[2020-03-18] MEDS: SENNOSIDES/DOCUSATE 8.6/50MG TABLET. PO SCH ×2 (08:14→19:55)
[2020-03-18] MEDS: NYSTATIN TOPICAL POWDER 15GM BOTTLE. TP SCH ×2 (08:14→19:56)
--- NOTE | 2020-03-18 09:39 | NUR ---
Patient consumed 100% of his breakfast. Patient calm and is resting. Patient has no needs at this time.
[2020-03-18 16:01] VITALS: BP 155/61
[2020-03-18] MEDS: QUEtiapine 25 MG TABLET. PO SCH (19:53)
[2020-03-18] MEDS: ATORVASTATIN CALCIUM 20 MG TABLET PO SCH (19:54)
[2020-03-18] MEDS: MIRTAZAPINE 15 MG TABLET PO SCH (19:54)
--- NOTE | 2020-03-18 21:54 | PDOC ---
Exam Note: Nikita Note: Please also refer to the separate dictated note~for this date of service dictated separately.~Patient seen individually. Discussed the patient with Nursing staff reviewed the chart.~Reviewed interim history and current functioning. Reviewed vital signs,~Labs/ Radiology~and current medications noted below. Continue current treatment with the changes noted in the dictated addendum note Assessment: Vital Signs/I&O: Vital Signs Date Time Temp Pulse Resp B/P (MAP) Pulse Ox O2 Delivery O2 Flow Rate FiO2 03/18/20 20:22 97.7 95 03/18/20 16:01 82 18 155/61 (92) 03/18/20 09:35 Room Air I & O 03/17/20 03/17/20 03/18/20 15:00 23:00 07:00 Intake Total 60 ml 0 ml 0 ml Balance 60 ml 0 ml 0 ml Current Medications: I have reviewed the current psychotropics carefully including drug interactions. Risk benefit ratio favors no change other than as noted in my dictated progress note. 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
--- NOTE | 2020-03-18 22:00 | NUR ---
Patient is in his room on assumption of care, awake in bed. He is compliant with assessments and medications crushed in pudding. Appears to be less restless and hallucinating less than baseline, but has been observed intermittently reaching up to grab something that isn't there. No agitation. Does not appear to be experiencing any pain or discomfort. Patient appears to be sleeping comfortably at present time. Will continue to monitor.
[2020-03-19 05:45] VITALS: BP 158/81
[2020-03-19] MEDS: POLYETHYLENE GLYCOL 3350 17 GM PACKET. PO SCH (09:00)
[2020-03-19] MEDS: FENOFIBRATE NANOCRYSTALLIZED 145 MG TABLET PO SCH (09:00)
[2020-03-19] MEDS: MULTIVITAMIN with MINERAL TABLET. PO SCH (09:00)
[2020-03-19] MEDS: FOLIC ACID 1 MG TABLET PO SCH (09:00)
[2020-03-19] MEDS: LACTOBACILLUS RHAMNOSUS GG 1 CAPSULE. PO SCH (09:00)
[2020-03-19] MEDS: PANTOPRAZOLE 40 MG TABLET. PO SCH (09:09)
[2020-03-19] MEDS: CITALOPRAM 20 MG TABLET. PO SCH (09:09)
[2020-03-19] MEDS: DIVALPROEX 125 MG CAP.SPRINK PO SCH ×2 (09:09→20:29)
[2020-03-19] MEDS: ASPIRIN CHEWABLE 81 MG TABLET. PO SCH (09:09)
[2020-03-19] MEDS: RIVAROXABAN 10 MG TABLET. PO SCH (09:10)
[2020-03-19] MEDS: medroxyPROGESTERone 5 MG TABLET PO SCH (09:10)
[2020-03-19] MEDS: HYDROcodone/APAP 5/325MG 1 TAB TABLET PO SCH ×2 (09:12→20:30)
[2020-03-19] MEDS: NYSTATIN TOPICAL POWDER 15GM BOTTLE. TP SCH ×2 (09:12→20:30)
[2020-03-19] MEDS: SENNOSIDES/DOCUSATE 8.6/50MG TABLET. PO SCH ×2 (09:12→20:29)
--- NOTE | 2020-03-19 11:18 | NUR ---
Pt is confused, calm, disorganized, and compliant. No agitation, no aggression, no hallucinations or delusions noted. He is compliant with his medication and assessment.
[2020-03-19 18:37] VITALS: BP 117/0
[2020-03-19] MEDS: MIRTAZAPINE 15 MG TABLET PO SCH (20:29)
[2020-03-19] MEDS: ATORVASTATIN CALCIUM 20 MG TABLET PO SCH (20:29)
[2020-03-19] MEDS: QUEtiapine 25 MG TABLET. PO SCH (20:30)
--- NOTE | 2020-03-19 21:58 | NUR ---
PT agitated, angry in cares. PT compliant eventually with assessment. PT compliant with medications.
--- NOTE | 2020-03-19 22:15 | PDOC ---
Exam Note: Nikita Note: Please also refer to the separate dictated note~for this date of service dictated separately.~Patient seen individually. Discussed the patient with Nursing staff reviewed the chart.~Reviewed interim history and current functioning. Reviewed vital signs,~Labs/ Radiology~and current medications noted below. Continue current treatment with the changes noted in the dictated addendum note Assessment: Vital Signs/I&O: Vital Signs Date Time Temp Pulse Resp B/P (MAP) Pulse Ox O2 Delivery O2 Flow Rate FiO2 03/19/20 21:30 18 Room Air 03/19/20 21:28 97.4 94 03/19/20 18:37 70 117/0 (39) I & O 03/18/20 03/18/20 03/19/20 15:00 23:00 07:00 Intake Total 0 ml 180 ml Balance 0 ml 180 ml Current Medications: I have reviewed the current psychotropics carefully including drug interactions. Risk benefit ratio favors no change other than as noted in my dictated progress note. 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
[2020-03-20 05:44] VITALS: BP 163/85
[2020-03-20] MEDS: CITALOPRAM 20 MG TABLET. PO SCH (08:44)
[2020-03-20] MEDS: PANTOPRAZOLE 40 MG TABLET. PO SCH (08:44)
[2020-03-20] MEDS: FOLIC ACID 1 MG TABLET PO SCH (08:44)
[2020-03-20] MEDS: DIVALPROEX 125 MG CAP.SPRINK PO SCH ×2 (08:44→20:21)
[2020-03-20] MEDS: medroxyPROGESTERone 5 MG TABLET PO SCH (08:44)
[2020-03-20] MEDS: RIVAROXABAN 10 MG TABLET. PO SCH (08:44)
[2020-03-20] MEDS: FENOFIBRATE NANOCRYSTALLIZED 145 MG TABLET PO SCH (08:44)
[2020-03-20] MEDS: SENNOSIDES/DOCUSATE 8.6/50MG TABLET. PO SCH ×2 (08:44→20:22)
[2020-03-20] MEDS: ASPIRIN CHEWABLE 81 MG TABLET. PO SCH (08:44)
[2020-03-20] MEDS: HYDROcodone/APAP 5/325MG 1 TAB TABLET PO SCH ×2 (08:46→20:22)
[2020-03-20] MEDS: NYSTATIN TOPICAL POWDER 15GM BOTTLE. TP SCH ×2 (08:46→20:22)
--- NOTE | 2020-03-20 11:37 | NUR ---
Nursing note: Pt Addendum: 03/20/20 at 1139 by AASHISH CASTAÑEDA RN RN Pt asleep in his bed when approached with morning meds and assessment. He was easily aroused at that time and was compliant with taking his meds crushed and mixed with pudding. He was cooperative with his assessment. Pt is currently sleeping in his bed. Will continue to monitor.
[2020-03-20 15:35] VITALS: BP 137/104
[2020-03-20] MEDS: ATORVASTATIN CALCIUM 20 MG TABLET PO SCH (20:21)
[2020-03-20] MEDS: MIRTAZAPINE 15 MG TABLET PO SCH (20:22)
--- NOTE | 2020-03-20 21:55 | PDOC ---
Exam Note: Nikita Note: Please also refer to the separate dictated note~for this date of service dictated separately.~Patient seen individually. Discussed the patient with Nursing staff reviewed the chart.~Reviewed interim history and current functioning. Reviewed vital signs,~Labs/ Radiology~and current medications noted below. Continue current treatment with the changes noted in the dictated addendum note Assessment: Vital Signs/I&O: Vital Signs Date Time Temp Pulse Resp B/P (MAP) Pulse Ox O2 Delivery O2 Flow Rate FiO2 03/20/20 20:22 94 03/20/20 19:53 97.6 03/20/20 15:35 71 16 137/104 (115) Room Air I & O 03/19/20 03/19/20 03/20/20 15:00 23:00 07:00 Intake Total 582 ml 660 ml 60 ml Balance 582 ml 660 ml 60 ml Current Medications: Meds: Current Medications Medications (Trade) Dose Ordered Sig/Julio Route PRN Reason Start Time Stop Time Status Last Admin Dose Admin Divalproex Sodium (Depakote Sprinkles) 625 mg QHS PO 03/20/20 21:00 03/20/20 20:21 I have reviewed the current psychotropics carefully including drug interactions. Risk benefit ratio favors no change other than as noted in my dictated progress note. 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
--- NOTE | 2020-03-20 22:22 | NUR ---
Nursing Note Pt in bed sleeping during assessment, awakens to voice, smiles and rambles something to me. Takes food and fluid freely nectar thick swallows easily. Goes right back to sleep. No behaviors.
[2020-03-20] MEDS: HYDROcodone/APAP 5/325MG 1 TAB TABLET PO PRN (23:55)
[2020-03-21 05:44] VITALS: BP 160/86
[2020-03-21] MEDS: FOLIC ACID 1 MG TABLET PO SCH (09:35)
[2020-03-21] MEDS: HYDROcodone/APAP 5/325MG 1 TAB TABLET PO SCH ×2 (09:35→20:30)
[2020-03-21] MEDS: FENOFIBRATE NANOCRYSTALLIZED 145 MG TABLET PO SCH (09:35)
[2020-03-21] MEDS: RIVAROXABAN 10 MG TABLET. PO SCH (09:36)
[2020-03-21] MEDS: CITALOPRAM 20 MG TABLET. PO SCH (09:36)
[2020-03-21] MEDS: SENNOSIDES/DOCUSATE 8.6/50MG TABLET. PO SCH ×2 (09:36→20:29)
[2020-03-21] MEDS: PANTOPRAZOLE 40 MG TABLET. PO SCH (09:36)
[2020-03-21] MEDS: medroxyPROGESTERone 5 MG TABLET PO SCH (09:36)
[2020-03-21] MEDS: ASPIRIN CHEWABLE 81 MG TABLET. PO SCH (09:36)
[2020-03-21] MEDS: NYSTATIN TOPICAL POWDER 15GM BOTTLE. TP SCH ×2 (09:36→20:28)
--- NOTE | 2020-03-21 11:01 | NUR ---
Nursing note: Pt sitting in his room looking out his window when approached for morning med pass. He smiled and said "hey baby" when asked how he was doing. Pt was compliant with meds crushed in pudding and was cooperative with his assessment. He is currently sitting quietly in his chair. Will continue to monitor.
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
--- NOTE | 2020-03-21 11:46 | PDOC ---
Exam Note: Nikita Note: This note is a late entry for 03/19/2020 covers elements not covered in my initial note. Subjective: The patient was reviewed on telehealth rounds in the evening of 03/19/2020 with [facility] due to COVID-19 restrictions on the unit with no admissions and discharges. He is restless, hallucinating, grabbing at things in the air, more so at night, combative with cares. He appears more sedated. Review of Systems: No CV, , pulmonary, eye, ENT system symptoms on review. Ambulation impaired. Mental Status Exam: Oriented to himself. He is restless, hallucinating, combative with cares. Verbal responses are monosyllabic. Insight and judgment, recent and remote memory, attention and concentration, fund of knowledge is poor consistent with his diagnoses. Laboratory Data: Reviewed. Impression: Major neurocognitive disorder Alzheimer vascular with delusion, depression, behavioral disturbance. Impulse control disorder unspecified. Anxiety disorder unspecified. Rest unchanged. Plan: No change from initial note. Assessment: Vital Signs/I&O: Vital Signs Date Time Temp Pulse Resp B/P (MAP) Pulse Ox O2 Delivery O2 Flow Rate FiO2 03/21/20 10:38 95 03/21/20 05:44 98.1 76 16 160/86 (110) 03/20/20 15:35 Room Air I & O 03/20/20 03/20/20 03/21/20 15:00 23:00 07:00 Intake Total 720 ml 360 ml Balance 720 ml 360 ml Current Medications: Meds: Current Medications Medications (Trade) Dose Ordered Sig/Julio Route PRN Reason Start Time Stop Time Status Last Admin Dose Admin Divalproex Sodium (Depakote Sprinkles) 625 mg QHS PO 03/20/20 21:00 03/20/20 20:21 I have reviewed the current psychotropics carefully including drug interactions. Risk benefit ratio favors no change other than as noted in my dictated progress note. 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
--- NOTE | 2020-03-21 11:54 | PDOC ---
Exam Note: Nikita Note: This note is a late entry for 03/20/2020 covers elements not covered in my initial note. Subjective: The patient was reviewed on telehealth rounds in the evening of 03/20/2020 with [facility] due to COVID-19 restrictions on the unit with no admissions and discharges. Per [facility] in the evening, the patient slept 5- 3/4 hours previous night. He has been quite sedated during the day. This is concerning because he has difficulty waking up even for meals. We will go ahead and stop the Seroquel 25 mg h.s. and Depakote Sprinkle 625 mg in the morning. Continue 625 mg in the evening. He takes his meds in pudding. Review of Systems: No CV, , pulmonary, eye, ENT system symptoms on review. Ambulation impaired. Mental Status Exam: Oriented to himself. He has been quite withdrawn, isolative. Verbal responses are monosyllabic. Insight and judgment, recent and remote memory, attention and concentration, fund of knowledge is poor consistent with his diagnoses. Laboratory Data: Reviewed. Impression: Major neurocognitive disorder Alzheimer vascular with delusion, depression, behavioral disturbance. Impulse control disorder unspecified. Anxiety disorder unspecified. Rest unchanged. Plan: No change from initial note. Assessment: Vital Signs/I&O: Vital Signs Date Time Temp Pulse Resp B/P (MAP) Pulse Ox O2 Delivery O2 Flow Rate FiO2 03/21/20 10:38 95 03/21/20 05:44 98.1 76 16 160/86 (110) 03/20/20 15:35 Room Air I & O 03/20/20 03/20/20 03/21/20 15:00 23:00 07:00 Intake Total 720 ml 360 ml Balance 720 ml 360 ml Current Medications: Meds: Current Medications Medications (Trade) Dose Ordered Sig/Julio Route PRN Reason Start Time Stop Time Status Last Admin Dose Admin Divalproex Sodium (Depakote Sprinkles) 625 mg QHS PO 03/20/20 21:00 03/20/20 20:21 I have reviewed the current psychotropics carefully including drug interactions. Risk benefit ratio favors no change other than as noted in my dictated progress note. 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
--- NOTE | 2020-03-21 13:30 | NUR ---
CATHY contacted pt facility to inform them that the health department has requested that all staff be negative before we can proceed with discharging. CATHY was asked to make sure that pt is also tested prior to them being able to accept pt. CATHY faxed over updates.
[2020-03-21 15:25] VITALS: BP 141/81
[2020-03-21] MEDS: DIVALPROEX 125 MG CAP.SPRINK PO SCH (20:28)
[2020-03-21] MEDS: MIRTAZAPINE 15 MG TABLET PO SCH (20:30)
[2020-03-21] MEDS: ATORVASTATIN CALCIUM 20 MG TABLET PO SCH (20:30)
--- NOTE | 2020-03-21 21:52 | PDOC ---
Exam Note: Nikita Note: Please also refer to the separate dictated note~for this date of service dictated separately.~Patient seen individually. Discussed the patient with Nursing staff reviewed the chart.~Reviewed interim history and current functioning. Reviewed vital signs,~Labs/ Radiology~and current medications noted below. Continue current treatment with the changes noted in the dictated addendum note Assessment: Vital Signs/I&O: Vital Signs Date Time Temp Pulse Resp B/P (MAP) Pulse Ox O2 Delivery O2 Flow Rate FiO2 03/21/20 20:58 98.4 95 03/21/20 15:25 61 17 141/81 (101) Room Air I & O 03/20/20 03/20/20 03/21/20 15:00 23:00 07:00 Intake Total 720 ml 360 ml Balance 720 ml 360 ml Current Medications: I have reviewed the current psychotropics carefully including drug interactions. Risk benefit ratio favors no change other than as noted in my dictated progress note. 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
[2020-03-22 06:02] VITALS: BP 165/84
[2020-03-22 07:53] LABS: BASO % 0 % (0-3); EOS # 0.1 x10^3/uL (0.0-0.7); EOS % 2 % (0-3); HEMATOCRIT 30.7 % (39.0-53.0); LYMPH # 2.4 x10^3/uL (1.0-4.8); LYMPH % 42 % (24-48); MEAN CORPUSCULAR HEMOGLOBIN 29 pg (25-35); MEAN CORPUSCULAR HGB CONC 33 g/dL (31-37); MEAN CORPUSCULAR VOLUME 90 fL (79-100); MONO # 0.6 x10^3/uL (0.0-1.1); MONO % 10 % (0-9); NEUT # 2.7 x10^3uL (1.8-7.7); NEUT % 46 % (31-73); PLATELET COUNT 209 x10^3/uL (140-400); RED CELL DISTRIBUTION WIDTH 14.9 % (11.5-14.5); WHITE BLOOD COUNT 5.9 x10^3/uL (4.0-11.0)
[2020-03-22 08:06] LABS: ALBUMIN 2.9 g/dL (3.4-5.0); ALBUMIN/GLOBULIN RATIO 0.9 (1.0-1.7); CALCIUM 8.4 mg/dL (8.5-10.1); CREATININE 1.9 mg/dL (0.7-1.3); GFR 34.5; POTASSIUM 4.4 mmol/L (3.5-5.1); TOTAL BILIRUBIN 0.3 mg/dL (0.2-1.0); TOTAL PROTEIN 6.3 g/dL (6.4-8.2)
[2020-03-22] MEDS: ASPIRIN CHEWABLE 81 MG TABLET. PO SCH (08:35)
[2020-03-22] MEDS: FENOFIBRATE NANOCRYSTALLIZED 145 MG TABLET PO SCH (08:36)
[2020-03-22] MEDS: FOLIC ACID 1 MG TABLET PO SCH (08:36)
[2020-03-22] MEDS: SENNOSIDES/DOCUSATE 8.6/50MG TABLET. PO SCH ×2 (08:36→19:49)
[2020-03-22] MEDS: medroxyPROGESTERone 5 MG TABLET PO SCH (08:36)
[2020-03-22] MEDS: PANTOPRAZOLE 40 MG TABLET. PO SCH (08:36)
[2020-03-22] MEDS: CITALOPRAM 20 MG TABLET. PO SCH (08:36)
[2020-03-22] MEDS: RIVAROXABAN 10 MG TABLET. PO SCH (08:36)
[2020-03-22] MEDS: HYDROcodone/APAP 5/325MG 1 TAB TABLET PO SCH ×2 (08:38→19:49)
[2020-03-22] MEDS: NYSTATIN TOPICAL POWDER 15GM BOTTLE. TP SCH ×2 (08:38→19:49)
[2020-03-22] MEDS: CHOLECALCIFEROL (VITAMIN D3) 50,000 UNIT CAPSULE PO SCH (08:38)
--- NOTE | 2020-03-22 11:20 | NUR ---
Nursing note: Pt in his bed sleeping when approached for morning med pass. He was easily woken and he was compliant with meds crushed in pudding and cooperative with assessment. He was resistive with lab draw, requiring staff assist of 2, but has been calm and pleasant since. He is currently in his bed sleeping. Will continue to monitor.
--- NOTE | 2020-03-22 14:50 | NUR ---
SW followed up with pt facility to let them know how pt is doing. Tentatively pt can look at discharge late Thursday afternoon. CATHY will send updates on pt and will finalize all plans with pt facility and pt brother.
[2020-03-22 16:29] VITALS: BP 114/67
--- NOTE | 2020-03-22 16:53 | NUR ---
CATHY contacted pt brother, Efrain, to discuss pt behaviors and his decrease in behaviors since admission. Pt is less agitated although it appears to depend on what you are asking pt to do. Pt is hallucinating less and tolerating his meds crushed in pudding. Pt brother questioned discharge and SW let him know that once we receive negatives from staff who were tested, pt would be able to discharge. Pt facility is fine having pt return back before the weekend. So if everything works, pt will be able to discharge Thursday afternoon. If this all goes as planned, CATHY will make sure to contact pt brother re: finalizing discharge plans in the morning.
--- NOTE | 2020-03-22 16:56 | NUR ---
[facility] Social Work Discharge Planning Form Patient Name ELPIDIO WHITNEY Admit Date: 28 February 2020 DISCHARGE PLAN Discharge Destination: Pt to return to [facility] Care Assessment: N/A Level II Assessment: N/A Transportation: Facility to pick pt up around 1430 Special Instructions/Notes: Please fax discharge orders and discharge medication list to the facility fax listed below. DISCHARGE TO FACILITY Facility: [facility] Phone: Address: [address] [place] [address]; [place] [address] Contact Name: Roula Leigh, DON: Contact Name: Catarino Nolan, Admissions: PCP: Dr. Jimenez
[2020-03-22] MEDS: DIVALPROEX 125 MG CAP.SPRINK PO SCH (19:48)
[2020-03-22] MEDS: MIRTAZAPINE 15 MG TABLET PO SCH (19:48)
[2020-03-22] MEDS: ATORVASTATIN CALCIUM 20 MG TABLET PO SCH (19:49)
--- NOTE | 2020-03-22 21:52 | PDOC ---
Exam Note: Nikita Note: Please also refer to the separate dictated note~for this date of service dictated separately.~Patient seen individually. Discussed the patient with Nursing staff reviewed the chart.~Reviewed interim history and current functioning. Reviewed vital signs,~Labs/ Radiology~and current medications noted below. Continue current treatment with the changes noted in the dictated addendum note Assessment: Vital Signs/I&O: Vital Signs Date Time Temp Pulse Resp B/P (MAP) Pulse Ox O2 Delivery O2 Flow Rate FiO2 03/22/20 17:45 98.3 03/22/20 16:29 71 18 114/67 (83) 95 03/21/20 15:25 Room Air I & O 03/21/20 03/21/20 03/22/20 15:00 23:00 07:00 Intake Total 630 ml 220 ml Balance 630 ml 220 ml Labs: Laboratory Tests Test 03/22/20 07:44 White Blood Count 5.9 x10^3/uL (4.0-11.0) Red Blood Count 3.40 x10^6/uL (4.30-5.70) L Hemoglobin 10.0 g/dL (13.0-17.5) L Hematocrit 30.7 % (39.0-53.0) L Mean Corpuscular Volume 90 fL (79-100) Mean Corpuscular Hemoglobin 29 pg (25-35) Mean Corpuscular Hemoglobin Concent 33 g/dL (31-37) Red Cell Distribution Width 14.9 % (11.5-14.5) H Platelet Count 209 x10^3/uL (140-400) Neutrophils (%) (Auto) 46 % (31-73) Lymphocytes (%) (Auto) 42 % (24-48) Monocytes (%) (Auto) 10 % (0-9) H Eosinophils (%) (Auto) 2 % (0-3) Basophils (%) (Auto) 0 % (0-3) Neutrophils # (Auto) 2.7 x10^3uL (1.8-7.7) Lymphocytes # (Auto) 2.4 x10^3/uL (1.0-4.8) Monocytes # (Auto) 0.6 x10^3/uL (0.0-1.1) Eosinophils # (Auto) 0.1 x10^3/uL (0.0-0.7) Basophils # (Auto) 0.0 x10^3/uL (0.0-0.2) Sodium Level 145 mmol/L (136-145) Potassium Level 4.4 mmol/L (3.5-5.1) Chloride Level 112 mmol/L (98-107) H Carbon Dioxide Level 26 mmol/L (21-32) Anion Gap 7 (6-14) Blood Urea Nitrogen 39 mg/dL (8-26) H Creatinine 1.9 mg/dL (0.7-1.3) H Estimated GFR (Cockcroft-Gault) 34.5 BUN/Creatinine Ratio 21 (6-20) H Glucose Level 86 mg/dL (70-99) Calcium Level 8.4 mg/dL (8.5-10.1) L Total Bilirubin 0.3 mg/dL (0.2-1.0) Aspartate Amino Transferase (AST) 28 U/L (15-37) Alanine Aminotransferase (ALT) 19 U/L (16-63) Alkaline Phosphatase 49 U/L (46-116) Total Protein 6.3 g/dL (6.4-8.2) L Albumin 2.9 g/dL (3.4-5.0) L Albumin/Globulin Ratio 0.9 (1.0-1.7) L Current Medications: I have reviewed the current psychotropics carefully including drug interactions. Risk benefit ratio favors no change other than as noted in my dictated progress note. 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
--- NOTE | 2020-03-22 23:25 | NUR ---
This evening pt has been in bed in his room. He has been pleasant and cooperative meds were taken crushed in pudding. He is able to state name but other conversation is rambling and largely incomprehensible. He was cooperative with cares and has had no behaviors tonight.
[2020-03-23] MEDS ORDERED: HYDR-2759 PO (01:09)
[2020-03-23] MEDS: HYDROcodone/APAP 5/325MG 1 TAB TABLET PO PRN (03:12)
--- NOTE | 2020-03-23 03:12 | NUR ---
Pt restless in bed and rubbing hip. PRN hydrocodone given.
--- NOTE | 2020-03-23 04:20 | NUR ---
Remains awake in bed, less restless and no longer rubbing hip.
[2020-03-23 06:17] VITALS: BP 131/79
--- NOTE | 2020-03-23 06:32 | PDOC ---
Exam Note: Nikita Note: This note is a late entry for 03/21/2020 covers elements not covered in my initial note. Subjective: The patient was reviewed on telehealth rounds due to COVID-19 restrictions on the unit in the evening of 03/21/2020 with [facility]. Per [facility] RN, the patient slept 6-1/4 hours previous night. He has been less drowsy. Since this morning, Seroquel and Depakote have been stopped. He has not been agitated or aggressive. Review of Systems: No CV, , pulmonary, eye system symptoms on review. Reliability poor. Gait unsteady. Mental Status Exam: Oriented to himself. He has been quite withdrawn. Verbal responses are monosyllabic. Insight and judgment, recent and remote memory, att ention and concentration, fund of knowledge is poor consistent with his diagnoses. Laboratory Data: Reviewed. Impression: Major neurocognitive disorder Alzheimer vascular with delusion, depression, behavioral disturbance. Impulse control disorder unspecified. Anxiety disorder unspecified. Rest unchanged. Plan: No change from initial note. Assessment: Vital Signs/I&O: Vital Signs Date Time Temp Pulse Resp B/P (MAP) Pulse Ox O2 Delivery O2 Flow Rate FiO2 03/23/20 06:17 98.3 75 18 131/79 (96) 95 03/23/20 04:30 Room Air I & O 03/22/20 03/22/20 03/23/20 15:00 23:00 07:00 Intake Total 240 ml 360 ml Balance 240 ml 360 ml Labs: Laboratory Tests Test 03/22/20 07:44 White Blood Count 5.9 x10^3/uL (4.0-11.0) Red Blood Count 3.40 x10^6/uL (4.30-5.70) L Hemoglobin 10.0 g/dL (13.0-17.5) L Hematocrit 30.7 % (39.0-53.0) L Mean Corpuscular Volume 90 fL (79-100) Mean Corpuscular Hemoglobin 29 pg (25-35) Mean Corpuscular Hemoglobin Concent 33 g/dL (31-37) Red Cell Distribution Width 14.9 % (11.5-14.5) H Platelet Count 209 x10^3/uL (140-400) Neutrophils (%) (Auto) 46 % (31-73) Lymphocytes (%) (Auto) 42 % (24-48) Monocytes (%) (Auto) 10 % (0-9) H Eosinophils (%) (Auto) 2 % (0-3) Basophils (%) (Auto) 0 % (0-3) Neutrophils # (Auto) 2.7 x10^3uL (1.8-7.7) Lymphocytes # (Auto) 2.4 x10^3/uL (1.0-4.8) Monocytes # (Auto) 0.6 x10^3/uL (0.0-1.1) Eosinophils # (Auto) 0.1 x10^3/uL (0.0-0.7) Basophils # (Auto) 0.0 x10^3/uL (0.0-0.2) Sodium Level 145 mmol/L (136-145) Potassium Level 4.4 mmol/L (3.5-5.1) Chloride Level 112 mmol/L (98-107) H Carbon Dioxide Level 26 mmol/L (21-32) Anion Gap 7 (6-14) Blood Urea Nitrogen 39 mg/dL (8-26) H Creatinine 1.9 mg/dL (0.7-1.3) H Estimated GFR (Cockcroft-Gault) 34.5 BUN/Creatinine Ratio 21 (6-20) H Glucose Level 86 mg/dL (70-99) Calcium Level 8.4 mg/dL (8.5-10.1) L Total Bilirubin 0.3 mg/dL (0.2-1.0) Aspartate Amino Transferase (AST) 28 U/L (15-37) Alanine Aminotransferase (ALT) 19 U/L (16-63) Alkaline Phosphatase 49 U/L (46-116) Total Protein 6.3 g/dL (6.4-8.2) L Albumin 2.9 g/dL (3.4-5.0) L Albumin/Globulin Ratio 0.9 (1.0-1.7) L Current Medications: I have reviewed the current psychotropics carefully including drug interactions. Risk benefit ratio favors no change other than as noted in my dictated progress note. 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
--- NOTE | 2020-03-23 06:41 | PDOC ---
Exam Note: Nikita Note: This note is a late entry for 03/22/2020 covers elements not covered in my initial note. Subjective: The patient was reviewed on telehealth rounds due to COVID-19 restrictions on the unit in the morning of 03/22/2020 with treatment team with Payal Holley and Carol (social group worker) and [facility]. Per [facility]eria RN in the evening on telehealth rounds, the patient slept 7 hours previous night. Appetite is 50%. He is resistive with cares, combative with lab draws in the morning, somewhat dehydrated. He does not like nectar-thickened liquids which he has been given. He is less drowsy. He is more awake in the evening. Review of Systems: No CV, , pulmonary, eye system symptoms on review. Ambulation impaired. Mental Status Exam: Oriented to himself. He has been quite withdrawn, combative. Verbal responses are monosyllabic. Insight and judgment, recent and remote memory, attention and concentration, fund of knowledge is poor consistent with his diagnoses. Laboratory Data: Reviewed. Impression: Major neurocognitive disorder Alzheimer vascular with delusion, depression, behavioral disturbance. Impulse control disorder unspecified. Anxiety disorder unspecified. Rest unchanged. Plan: No change from initial note. Assessment: Vital Signs/I&O: Vital Signs Date Time Temp Pulse Resp B/P (MAP) Pulse Ox O2 Delivery O2 Flow Rate FiO2 03/23/20 06:17 98.3 75 18 131/79 (96) 95 03/23/20 04:30 Room Air I & O 03/22/20 03/22/20 03/23/20 15:00 23:00 07:00 Intake Total 240 ml 360 ml Balance 240 ml 360 ml Labs: Laboratory Tests Test 03/22/20 07:44 White Blood Count 5.9 x10^3/uL (4.0-11.0) Red Blood Count 3.40 x10^6/uL (4.30-5.70) L Hemoglobin 10.0 g/dL (13.0-17.5) L Hematocrit 30.7 % (39.0-53.0) L Mean Corpuscular Volume 90 fL (79-100) Mean Corpuscular Hemoglobin 29 pg (25-35) Mean Corpuscular Hemoglobin Concent 33 g/dL (31-37) Red Cell Distribution Width 14.9 % (11.5-14.5) H Platelet Count 209 x10^3/uL (140-400) Neutrophils (%) (Auto) 46 % (31-73) Lymphocytes (%) (Auto) 42 % (24-48) Monocytes (%) (Auto) 10 % (0-9) H Eosinophils (%) (Auto) 2 % (0-3) Basophils (%) (Auto) 0 % (0-3) Neutrophils # (Auto) 2.7 x10^3uL (1.8-7.7) Lymphocytes # (Auto) 2.4 x10^3/uL (1.0-4.8) Monocytes # (Auto) 0.6 x10^3/uL (0.0-1.1) Eosinophils # (Auto) 0.1 x10^3/uL (0.0-0.7) Basophils # (Auto) 0.0 x10^3/uL (0.0-0.2) Sodium Level 145 mmol/L (136-145) Potassium Level 4.4 mmol/L (3.5-5.1) Chloride Level 112 mmol/L (98-107) H Carbon Dioxide Level 26 mmol/L (21-32) Anion Gap 7 (6-14) Blood Urea Nitrogen 39 mg/dL (8-26) H Creatinine 1.9 mg/dL (0.7-1.3) H Estimated GFR (Cockcroft-Gault) 34.5 BUN/Creatinine Ratio 21 (6-20) H Glucose Level 86 mg/dL (70-99) Calcium Level 8.4 mg/dL (8.5-10.1) L Total Bilirubin 0.3 mg/dL (0.2-1.0) Aspartate Amino Transferase (AST) 28 U/L (15-37) Alanine Aminotransferase (ALT) 19 U/L (16-63) Alkaline Phosphatase 49 U/L (46-116) Total Protein 6.3 g/dL (6.4-8.2) L Albumin 2.9 g/dL (3.4-5.0) L Albumin/Globulin Ratio 0.9 (1.0-1.7) L Current Medications: I have reviewed the current psychotropics carefully including drug interactions. Risk benefit ratio favors no change other than as noted in my dictated progress note. 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
[2020-03-23] MEDS: FOLIC ACID 1 MG TABLET PO SCH (08:11)
[2020-03-23] MEDS: medroxyPROGESTERone 5 MG TABLET PO SCH (08:11)
[2020-03-23] MEDS: NYSTATIN TOPICAL POWDER 15GM BOTTLE. TP SCH (08:11)
[2020-03-23] MEDS: ASPIRIN CHEWABLE 81 MG TABLET. PO SCH (08:11)
[2020-03-23] MEDS: FENOFIBRATE NANOCRYSTALLIZED 145 MG TABLET PO SCH (08:11)
[2020-03-23] MEDS: SENNOSIDES/DOCUSATE 8.6/50MG TABLET. PO SCH (08:12)
[2020-03-23] MEDS: RIVAROXABAN 10 MG TABLET. PO SCH (08:12)
[2020-03-23] MEDS: PANTOPRAZOLE 40 MG TABLET. PO SCH (08:12)
[2020-03-23] MEDS: CITALOPRAM 20 MG TABLET. PO SCH (08:12)
[2020-03-23] MEDS: HYDROcodone/APAP 5/325MG 1 TAB TABLET PO SCH ×2 (08:14→14:11)
--- NOTE | 2020-03-23 13:17 | NUR ---
Transition Record was faxed to follow-up provider with the following elements: Reason for admission, procedures, tests, principal diagnosis, pending studies, patient instructions, 26/01 contact information for unit, phone number to obtain pending test results, plan for follow-up care, physician follow-up, advanced directive information, and medication list with dose, duration and instructions. This information was included in the following documents: History and physical, lab results, study results, progress notes, social work planning form, DC instruction form, patient visit summary, and medication reconciliation form. Date & time record faxed: 03/23/2020 [id number] Record faxed to: [facility] Record discussed with/ report given to: JESUSITA FISHER
--- NOTE | 2020-03-23 21:56 | PDOC ---
Exam Note: Nikita Note: Please also refer to the separate dictated note~for this date of service dictated separately.~Patient seen individually. Discussed the patient with Nursing staff reviewed the chart.~Reviewed interim history and current functioning. Reviewed vital signs,~Labs/ Radiology~and current medications noted below. Continue current treatment with the changes noted in the dictated addendum note Assessment: Vital Signs/I&O: Vital Signs Date Time Temp Pulse Resp B/P (MAP) Pulse Ox O2 Delivery O2 Flow Rate FiO2 03/23/20 14:11 18 03/23/20 09:14 Room Air 03/23/20 06:17 98.3 75 131/79 (96) 95 I & O 03/22/20 03/22/20 03/23/20 15:00 23:00 07:00 Intake Total 240 ml 360 ml Balance 240 ml 360 ml Current Medications: I have reviewed the current psychotropics carefully including drug interactions. Risk benefit ratio favors no change other than as noted in my dictated progress note. Diagnosis: Problems: (1) Mild cognitive impairment (2) Dementia associated with alcoholism (3) Impulse control disorder, unspecified (4) Anxiety disorder, unspecified (5) Dementia in Alzheimer's disease with depression (6) Dementia in Alzheimer's disease with delusions (7) Major neurocognitive disorder (8) Dementia in Alzheimer's disease with early onset with behavioral disturbance RHONDA PALUMBO MD Mar 23, 2020 21:56
--- NOTE | 2020-03-25 22:11 | DS ---
DATE OF DISCHARGE: 03/23/2020 This late entry 03/23/2020 covers elements not covered in my initial note. REASON FOR ADMISSION: Please refer to the admission history for details. Briefly, the patient is a 75-year-old male referred to us from [facility] referred by Dr. Jimenez, his primary care physician on account of worsening confusion, being resistive to cares, combative with staff, increased aggression, hitting, spitting, throwing food. He was calling staff derogatory names, restless, trying to push a computer over a peer. Behaviors were deemed dangerous, unmanageable within the context of his major neurocognitive disorder, Alzheimer, vascular with delusion, depression, behavioral disturbance. He had failed outpatient psychiatric interventions and referred for inpatient psychiatric stabilization. SIGNIFICANT FINDINGS AND CLINICAL COURSE: Following admission, the patient was seen daily individually by myself from a psychiatric standpoint, medical followup with Dr. Jimenez/Dr. Marcial. The patient was extremely confused, agitated, labile, paranoid. Adjustments were made in his psychotropics and he seemed to respond to a combination of Depakote Sprinkle 625 mg at bedtime, Celexa 20 mg a day. Initially, he was on Depakote Sprinkles 625 mg b.i.d., but was overly sedated during the day and therefore prior to discharge, it was reduced to 625 mg at bedtime with no loss of efficacy for behavioral dyscontrol. He is also unchanged on medroxyprogesterone 150 mg IM every 2 weeks, Provera oral 10 mg a day for his sexually inappropriate aggressive behaviors, which seemed to subside prior to discharge. He is also on Zyprexa 2.5 mg q. 2 hours p.r.n. psychosis, agitation, ____ 15 mg in 24 hours, Remeron 15 mg at bedtime, trazodone 50 mg p.o. at bedtime p.r.n. insomnia, may repeat x 1. REVIEW OF SYSTEMS: Prior to discharge on 03/23/2020, no CV, , pulmonary, eye, ENT system symptoms on review. Reliability poor. MENTAL STATUS EXAM: Oriented to himself. Insight, judgment, recent and remote memory, attention, concentration, fund of knowledge poor, consistent with his diagnosis. FINAL DIAGNOSES: Major neurocognitive disorder, Alzheimer, vascular with delusion, depression, behavioral disturbance; anxiety disorder, unspecified; impulse control disorder, unspecified. Rest unchanged from admission. DISCHARGE MEDICATIONS: Please refer to the MRAD. DISCHARGE INSTRUCTIONS: Outpatient psychiatric and medical followup at the group home. Time for discharge day management greater than 30 minutes. MAN Rene PALUMBO MD DR: SENTHIL/mildred JOB#: [id number] / [id number]
== END 2020-03-23 15:03 | DRG 56 ==
LOC: GEROPSY 19:20
PROVIDERS: ADMIT Psychiatry & Neurology Psychiatry; ATTEND Psychiatry & Neurology Psychiatry
DX: G30.9 Alzheimer's disease, unspecified (principal); E43 Unspecified severe protein-calorie malnutrition; F01.51 Vascular dementia, unspecified severity, with behavioral disturbance; F02.81 Dementia in other diseases classified elsewhere, unspecified severity, with behavioral disturbance; F10.27 Alcohol dependence with alcohol-induced persisting dementia; D64.9 Anemia, unspecified; E78.5 Hyperlipidemia, unspecified; E86.0 Dehydration; F25.9 Schizoaffective disorder, unspecified; F32.9 Major depressive disorder, single episode, unspecified; F41.9 Anxiety disorder, unspecified; F63.9 Impulse disorder, unspecified; G89.29 Other chronic pain; Z96.642 Presence of left artificial hip joint; I12.9 Hypertensive chronic kidney disease with stage 1 through stage 4 chronic kidney disease, or unspecified chronic kidney disease; K21.9 Gastro-esophageal reflux disease without esophagitis; N18.9 Chronic kidney disease, unspecified; Z66 Do not resuscitate; Z79.899 Other long term (current) drug therapy; Z81.1 Family history of alcohol abuse and dependence; Z87.891 Personal history of nicotine dependence; Z20.828 Contact with and (suspected) exposure to other viral communicable diseases; Z68.22 Body mass index [BMI] 22.0-22.9, adult
CPT/HCPCS: 36415; 71045; 80053; 80061; 80164; 81001; 82306; 82607; 82728; 83036; 83540; 83550; 83605; 83735; 84436; 84443; 84480; 85025; 86592; 87426; J1050; U0003-CS